=== PATIENT | male | born 1960 | race Caucasian/White ===

== ENCOUNTER 2020-05-31 10:39 | Outpatient (REF) | payer OTHER, SELFPAY ==
[2020-05-31 15:32] LABS: Ferritin 3082 ng/mL (20-250)
== END 2020-05-31 10:40 | disposition home or self-care (01) ==
LOC: HO.BBR 10:39
PROVIDERS: Visit Provider Internal Medicine Hematology & Oncology
DX: E83.110 Hereditary hemochromatosis (principal)
CPT/HCPCS: 36415; 82728

== ENCOUNTER 2020-06-15 13:58 | Outpatient (REF) | payer OTHER, SELFPAY ==
[2020-06-15 17:42] LABS: Ferritin 3303 ng/mL (20-250)
== END 2020-06-15 13:59 | disposition home or self-care (01) ==
LOC: HO.BBR 13:58
PROVIDERS: Visit Provider Internal Medicine Hematology & Oncology
DX: E83.110 Hereditary hemochromatosis (principal)
CPT/HCPCS: 36415; 82728

== ENCOUNTER 2020-06-29 14:05 | Outpatient (REF) | payer OTHER, SELFPAY ==
[2020-06-29 19:02] LABS: Ferritin 2210 ng/mL (20-250)
== END 2020-06-29 14:06 | disposition home or self-care (01) ==
LOC: HO.BBR 14:05
PROVIDERS: Visit Provider Internal Medicine Hematology & Oncology
DX: E83.110 Hereditary hemochromatosis (principal)
CPT/HCPCS: 36415; 82728

== ENCOUNTER 2020-07-13 14:04 | Outpatient (REF) | payer OTHER, SELFPAY ==
[2020-07-13 20:42] LABS: Ferritin 2256 ng/mL (20-250)
== END 2020-07-13 14:05 | disposition home or self-care (01) ==
LOC: HO.BBR 14:04
PROVIDERS: Visit Provider Internal Medicine Hematology & Oncology
DX: E83.110 Hereditary hemochromatosis (principal)
CPT/HCPCS: 36415; 82728

== ENCOUNTER 2020-07-27 13:43 | Outpatient (REF) | payer OTHER, SELFPAY ==
[2020-07-27 16:30] LABS: Ferritin 2347 ng/mL (20-250)
== END 2020-07-27 13:44 | disposition home or self-care (01) ==
LOC: HO.BBR 13:43
PROVIDERS: Visit Provider Internal Medicine Hematology & Oncology
DX: E83.110 Hereditary hemochromatosis (principal)
CPT/HCPCS: 36415; 82728

== ENCOUNTER 2020-08-13 13:16 | Outpatient (REF) | payer OTHER, SELFPAY ==
[2020-08-13 16:11] LABS: Ferritin 1833 ng/mL (20-250)
== END 2020-08-13 13:17 | disposition home or self-care (01) ==
LOC: HO.BBR 13:16
PROVIDERS: Visit Provider Internal Medicine Hematology & Oncology
DX: E83.110 Hereditary hemochromatosis (principal)
CPT/HCPCS: 36415; 82728

== ENCOUNTER 2020-08-31 13:40 | Outpatient (REF) | payer OTHER, SELFPAY ==
[2020-08-31 17:06] LABS: Ferritin 2413 ng/mL (20-250)
== END 2020-08-31 13:41 | disposition home or self-care (01) ==
LOC: HO.BBR 13:40
PROVIDERS: Visit Provider Internal Medicine Hematology & Oncology
DX: E83.110 Hereditary hemochromatosis (principal)
CPT/HCPCS: 36415; 82728

== ENCOUNTER 2020-09-14 13:45 | Outpatient (REF) | payer OTHER, SELFPAY ==
[2020-09-14 16:10] LABS: Ferritin 1444 ng/mL (20-250)
== END 2020-09-14 13:46 | disposition home or self-care (01) ==
LOC: HO.BBR 13:45
PROVIDERS: Visit Provider Internal Medicine Hematology & Oncology
DX: E83.110 Hereditary hemochromatosis (principal)
CPT/HCPCS: 36415; 82728

== ENCOUNTER 2020-09-28 09:54 | Outpatient (REF) | payer OTHER, SELFPAY ==
[2020-09-28 12:07] LABS: Ferritin 1005 ng/mL (20-250)
== END 2020-09-28 09:55 | disposition home or self-care (01) ==
LOC: HO.BBR 09:54
PROVIDERS: Visit Provider Internal Medicine Hematology & Oncology
DX: E83.110 Hereditary hemochromatosis (principal)
CPT/HCPCS: 36415; 82728

== ENCOUNTER 2020-10-12 10:05 | Outpatient (REF) | payer OTHER, SELFPAY ==
[2020-10-12 12:17] LABS: Ferritin 1412 ng/mL (20-250)
== END 2020-10-12 10:06 | disposition home or self-care (01) ==
LOC: HO.BBR 10:05
PROVIDERS: Visit Provider Internal Medicine Hematology & Oncology
DX: E83.110 Hereditary hemochromatosis (principal)
CPT/HCPCS: 36415; 82728

== ENCOUNTER 2020-10-26 13:54 | Outpatient (REF) | payer OTHER, SELFPAY ==
[2020-10-26 16:00] LABS: Ferritin 1188 ng/mL (20-250)
== END 2020-10-26 13:55 | disposition home or self-care (01) ==
LOC: HO.BBR 13:54
PROVIDERS: Visit Provider Internal Medicine Hematology & Oncology
DX: E83.110 Hereditary hemochromatosis (principal)
CPT/HCPCS: 36415; 82728

== ENCOUNTER 2020-11-09 13:43 | Outpatient (REF) | payer OTHER, SELFPAY ==
[2020-11-09 15:58] LABS: Ferritin 1140 ng/mL (20-250)
== END 2020-11-09 13:44 | disposition home or self-care (01) ==
LOC: HO.BBR 13:43
PROVIDERS: Visit Provider Internal Medicine Hematology & Oncology
DX: E83.110 Hereditary hemochromatosis (principal)
CPT/HCPCS: 36415; 82728

== ENCOUNTER 2020-11-23 13:00 | Outpatient (REF) | payer OTHER, SELFPAY ==
[2020-11-23 15:33] LABS: Ferritin 1028 ng/mL (20-250)
== END 2020-11-23 13:01 | disposition home or self-care (01) ==
LOC: HO.BBR 13:00
PROVIDERS: PCP Internal Medicine; Visit Provider Internal Medicine Hematology & Oncology
DX: E83.110 Hereditary hemochromatosis (principal)
CPT/HCPCS: 36415; 82728

== ENCOUNTER 2020-12-07 13:43 | Outpatient (REF) | payer OTHER, SELFPAY ==
[2020-12-07 15:56] LABS: Ferritin 955 ng/mL (20-250)
== END 2020-12-07 13:44 | disposition home or self-care (01) ==
LOC: HO.BBR 13:43
PROVIDERS: Visit Provider Internal Medicine Hematology & Oncology
DX: E83.110 Hereditary hemochromatosis (principal)
CPT/HCPCS: 36415; 82728

== ENCOUNTER 2020-12-21 12:25 | Outpatient (REF) | payer OTHER, SELFPAY ==
[2020-12-21 14:40] LABS: Ferritin 954 ng/mL (20-250)
== END 2020-12-21 12:26 | disposition home or self-care (01) ==
LOC: HO.BBR 12:25
PROVIDERS: Visit Provider Internal Medicine Hematology & Oncology
DX: E83.110 Hereditary hemochromatosis (principal)
CPT/HCPCS: 36415; 82728

== ENCOUNTER 2021-01-03 14:48 | Outpatient (REF) | payer OTHER, SELFPAY ==
[2021-01-03 16:40] LABS: Ferritin 1465 ng/mL (20-250)
== END 2021-01-03 14:49 | disposition home or self-care (01) ==
LOC: HO.BBR 14:48
PROVIDERS: PCP Internal Medicine; Visit Provider Internal Medicine Hematology & Oncology
DX: E83.110 Hereditary hemochromatosis (principal)
CPT/HCPCS: 36415; 82728

== ENCOUNTER 2021-01-18 13:35 | Outpatient (REF) | payer OTHER, SELFPAY ==
[2021-01-18 15:45] LABS: Ferritin 2127 ng/mL (20-250)
== END 2021-01-18 13:36 | disposition home or self-care (01) ==
LOC: HO.BBR 13:35
PROVIDERS: PCP Internal Medicine; Visit Provider Internal Medicine Hematology & Oncology
DX: E83.110 Hereditary hemochromatosis (principal)
CPT/HCPCS: 36415; 82728

== ENCOUNTER 2021-02-01 13:30 | Outpatient (REF) | payer OTHER, SELFPAY | END 2021-02-01 13:31 | disposition home or self-care (01) | LOC: HO.BBR 13:30 | PROVIDERS: Visit Provider Internal Medicine Hematology & Oncology | DX: Z13.89 Encounter for screening for other disorder (principal) ==

== ENCOUNTER 2021-02-15 13:50 | Outpatient (REF) | payer OTHER, SELFPAY ==
[2021-02-15 15:14] LABS: Ferritin 1331 ng/mL (20-250)
== END 2021-02-15 13:51 | disposition home or self-care (01) ==
LOC: HO.BBR 13:50
PROVIDERS: Visit Provider Internal Medicine Hematology & Oncology
DX: E83.110 Hereditary hemochromatosis (principal)
CPT/HCPCS: 36415; 82728

== ENCOUNTER 2021-03-01 11:51 | Outpatient (REF) | payer OTHER, SELFPAY ==
[2021-03-01 15:14] LABS: Ferritin 1075 ng/mL (20-250)
== END 2021-03-01 11:52 | disposition home or self-care (01) ==
LOC: HO.BBR 11:51
PROVIDERS: Visit Provider Internal Medicine Hematology & Oncology
DX: E83.110 Hereditary hemochromatosis (principal)
CPT/HCPCS: 36415; 82728

== ENCOUNTER 2021-03-21 12:11 | Outpatient (REF) | payer OTHER, SELFPAY ==
[2021-03-21 14:39] LABS: Ferritin 1075 ng/mL (20-250)
== END 2021-03-21 12:12 | disposition home or self-care (01) ==
LOC: HO.BBR 12:11
PROVIDERS: Visit Provider Internal Medicine Hematology & Oncology
DX: E83.110 Hereditary hemochromatosis (principal)
CPT/HCPCS: 36415; 82728

== ENCOUNTER 2021-04-04 12:16 | Outpatient (REF) | payer OTHER, SELFPAY ==
[2021-04-04 15:25] LABS: Ferritin 1128 ng/mL (20-250)
== END 2021-04-04 12:17 | disposition home or self-care (01) ==
LOC: HO.BBR 12:16
PROVIDERS: Visit Provider Internal Medicine Hematology & Oncology
DX: E83.110 Hereditary hemochromatosis (principal)
CPT/HCPCS: 36415; 82728

== ENCOUNTER 2021-04-18 15:44 | Outpatient (REF) | payer OTHER, SELFPAY ==
[2021-04-18 17:19] LABS: Ferritin 823 ng/mL (20-250)
== END 2021-04-18 15:45 | disposition home or self-care (01) ==
LOC: HO.BBR 15:44
PROVIDERS: Visit Provider Internal Medicine Hematology & Oncology
DX: E83.110 Hereditary hemochromatosis (principal)
CPT/HCPCS: 36415; 82728

== ENCOUNTER 2021-05-02 15:19 | Outpatient (REF) | payer OTHER, SELFPAY ==
[2021-05-02 17:02] LABS: Ferritin 798 ng/mL (20-250)
== END 2021-05-02 15:20 | disposition home or self-care (01) ==
LOC: HO.BBR 15:19
PROVIDERS: Visit Provider Internal Medicine Hematology & Oncology
DX: E83.110 Hereditary hemochromatosis (principal)
CPT/HCPCS: 36415; 82728

== ENCOUNTER 2021-05-16 14:16 | Outpatient (REF) | payer OTHER, SELFPAY ==
[2021-05-16 15:54] LABS: Ferritin 579 ng/mL (20-250)
== END 2021-05-16 14:17 | disposition home or self-care (01) ==
LOC: HO.BBR 14:16
PROVIDERS: Visit Provider Internal Medicine Hematology & Oncology
DX: E83.110 Hereditary hemochromatosis (principal)
CPT/HCPCS: 36415; 82728

== ENCOUNTER 2021-06-13 15:34 | Outpatient (REF) | payer OTHER, SELFPAY ==
[2021-06-13 17:16] LABS: Ferritin 704 ng/mL (20-250)
== END 2021-06-13 15:35 | disposition home or self-care (01) ==
LOC: HO.BBR 15:34
PROVIDERS: Visit Provider Internal Medicine Hematology & Oncology
DX: E83.119 Hemochromatosis, unspecified (principal)
CPT/HCPCS: 36415; 82728

== ENCOUNTER 2021-07-02 14:59 | Outpatient (REF) | payer OTHER, SELFPAY ==
[2021-07-02 17:29] LABS: Ferritin 651 ng/mL (20-250)
== END 2021-07-02 15:00 | disposition home or self-care (01) ==
LOC: HO.BBR 14:59
PROVIDERS: Visit Provider Internal Medicine Hematology & Oncology
DX: E83.110 Hereditary hemochromatosis (principal)
CPT/HCPCS: 36415; 82728

== ENCOUNTER 2021-07-18 15:20 | Outpatient (REF) | payer OTHER, SELFPAY ==
[2021-07-18 16:54] LABS: Ferritin 647 ng/mL (20-250)
== END 2021-07-18 15:21 | disposition home or self-care (01) ==
LOC: HO.BBR 15:20
PROVIDERS: Visit Provider Internal Medicine Hematology & Oncology
DX: E83.110 Hereditary hemochromatosis (principal)
CPT/HCPCS: 36415; 82728

== ENCOUNTER 2021-08-06 15:11 | Outpatient (REF) | payer OTHER, SELFPAY ==
[2021-08-06 17:20] LABS: Ferritin 445 ng/mL (20-250)
== END 2021-08-06 15:12 | disposition home or self-care (01) ==
LOC: HO.BBR 15:11
PROVIDERS: Visit Provider Internal Medicine Hematology & Oncology
DX: E83.110 Hereditary hemochromatosis (principal)
CPT/HCPCS: 36415; 82728

== ENCOUNTER 2021-08-20 14:22 | Outpatient (REF) | payer OTHER, SELFPAY ==
[2021-08-20 16:11] LABS: Ferritin 501 ng/mL (20-250)
== END 2021-08-20 14:23 | disposition home or self-care (01) ==
LOC: HO.BBR 14:22
PROVIDERS: Visit Provider Internal Medicine Hematology & Oncology
DX: E83.110 Hereditary hemochromatosis (principal)
CPT/HCPCS: 36415; 82728

== ENCOUNTER 2021-09-05 15:30 | Outpatient (REF) | payer OTHER, SELFPAY ==
[2021-09-05 16:50] LABS: Ferritin 534 ng/mL (20-250)
== END 2021-09-05 15:31 | disposition home or self-care (01) ==
LOC: HO.BBR 15:30
PROVIDERS: Visit Provider Internal Medicine Hematology & Oncology
DX: E83.110 Hereditary hemochromatosis (principal)
CPT/HCPCS: 36415; 82728

== ENCOUNTER 2021-09-23 13:15 | Outpatient (REF) | payer OTHER, SELFPAY ==
[2021-09-23 16:05] LABS: Ferritin 601 ng/mL (20-250)
== END 2021-09-23 13:16 | disposition home or self-care (01) ==
LOC: HO.BBR 13:15
PROVIDERS: Visit Provider Internal Medicine Hematology & Oncology
DX: E83.110 Hereditary hemochromatosis (principal)
CPT/HCPCS: 36415; 82728

== ENCOUNTER 2021-10-07 11:04 | Outpatient (REF) | payer OTHER, SELFPAY ==
[2021-10-07 12:47] LABS: Ferritin 554 ng/mL (20-250)
== END 2021-10-07 11:05 | disposition home or self-care (01) ==
LOC: HO.BBR 11:04
PROVIDERS: Visit Provider Internal Medicine Hematology & Oncology
DX: E83.110 Hereditary hemochromatosis (principal)
CPT/HCPCS: 36415; 82728

== ENCOUNTER 2021-10-21 10:51 | Outpatient (REF) | payer OTHER, SELFPAY ==
[2021-10-21 12:48] LABS: Ferritin 420 ng/mL (20-250)
== END 2021-10-21 10:52 | disposition home or self-care (01) ==
LOC: HO.BBR 10:51
PROVIDERS: Visit Provider Internal Medicine Hematology & Oncology
DX: E83.110 Hereditary hemochromatosis (principal)
CPT/HCPCS: 36415; 82728

== ENCOUNTER 2021-11-04 10:56 | Outpatient (REF) | payer OTHER, SELFPAY | END 2021-11-04 10:57 | disposition home or self-care (01) | LOC: HO.BBR 10:56 | PROVIDERS: Visit Provider Internal Medicine Hematology & Oncology | DX: Z13.89 Encounter for screening for other disorder (principal) ==

== ENCOUNTER 2021-11-18 10:51 | Outpatient (REF) | payer OTHER, SELFPAY | END 2021-11-18 10:52 | disposition home or self-care (01) | LOC: HO.BBR 10:51 | PROVIDERS: Visit Provider Internal Medicine Hematology & Oncology | DX: Z13.89 Encounter for screening for other disorder (principal) ==

== ENCOUNTER 2021-12-10 15:30 | Outpatient (REF) | payer OTHER, SELFPAY | END 2021-12-10 15:31 | disposition home or self-care (01) | LOC: HO.BBR 15:30 | PROVIDERS: Visit Provider Internal Medicine Hematology & Oncology | DX: Z13.89 Encounter for screening for other disorder (principal) ==

== ENCOUNTER 2021-12-24 15:41 | Outpatient (REF) | payer OTHER, SELFPAY | END 2021-12-24 15:42 | disposition home or self-care (01) | LOC: HO.BBR 15:41 | PROVIDERS: Visit Provider Internal Medicine Hematology & Oncology | DX: Z13.89 Encounter for screening for other disorder (principal) ==

== ENCOUNTER 2022-01-14 15:09 | Outpatient (REF) | payer OTHER, SELFPAY | END 2022-01-14 15:10 | disposition home or self-care (01) | LOC: HO.BBR 15:09 | PROVIDERS: Visit Provider Internal Medicine Hematology & Oncology | DX: Z13.89 Encounter for screening for other disorder (principal) ==

== ENCOUNTER 2022-01-29 15:40 | Outpatient (REF) | payer OTHER, SELFPAY ==
[2022-01-29 17:13] LABS: Ferritin 316 ng/mL (20-250)
== END 2022-01-29 15:41 | disposition home or self-care (01) ==
LOC: HO.BBR 15:40
PROVIDERS: Visit Provider Internal Medicine Hematology & Oncology
DX: E83.110 Hereditary hemochromatosis (principal)
CPT/HCPCS: 36415; 82728

== ENCOUNTER 2022-02-12 15:29 | Outpatient (REF) | payer OTHER, SELFPAY ==
[2022-02-12 16:57] LABS: Ferritin 309 ng/mL (20-250)
== END 2022-02-12 15:30 | disposition home or self-care (01) ==
LOC: HO.BBR 15:29
PROVIDERS: Visit Provider Internal Medicine Hematology & Oncology
DX: E83.110 Hereditary hemochromatosis (principal)
CPT/HCPCS: 36415; 82728

== ENCOUNTER 2022-02-26 15:40 | Outpatient (REF) | payer OTHER, SELFPAY ==
[2022-02-26 18:01] LABS: Ferritin 257 ng/mL (20-250)
== END 2022-02-26 15:41 | disposition home or self-care (01) ==
LOC: HO.BBR 15:40
PROVIDERS: Visit Provider Internal Medicine Hematology & Oncology
DX: E83.110 Hereditary hemochromatosis (principal)
CPT/HCPCS: 36415; 82728

== ENCOUNTER 2022-03-12 15:42 | Outpatient (REF) | payer OTHER, SELFPAY ==
[2022-03-12 17:50] LABS: Ferritin 230 ng/mL (20-250)
== END 2022-03-12 15:43 | disposition home or self-care (01) ==
LOC: HO.BBR 15:42
PROVIDERS: Visit Provider Internal Medicine Hematology & Oncology
DX: E83.110 Hereditary hemochromatosis (principal)
CPT/HCPCS: 36415; 82728

== ENCOUNTER 2022-03-31 13:26 | Outpatient (REF) | payer OTHER, SELFPAY ==
[2022-03-31 15:23] LABS: Ferritin 204 ng/mL (20-250)
== END 2022-03-31 13:27 | disposition home or self-care (01) ==
LOC: HO.BBR 13:26
PROVIDERS: Visit Provider Internal Medicine Hematology & Oncology
DX: E83.110 Hereditary hemochromatosis (principal)
CPT/HCPCS: 36415; 82728

== ENCOUNTER 2022-04-15 13:29 | Outpatient (REF) | payer OTHER, SELFPAY ==
[2022-04-15 16:51] LABS: Ferritin 166 ng/mL (20-250)
== END 2022-04-15 13:30 | disposition home or self-care (01) ==
LOC: HO.BBR 13:29
PROVIDERS: PCP Internal Medicine; Visit Provider Internal Medicine Hematology & Oncology
DX: E83.110 Hereditary hemochromatosis (principal)
CPT/HCPCS: 36415; 82728

== ENCOUNTER 2022-04-30 08:55 | Outpatient (REF) | payer OTHER, SELFPAY ==
[2022-04-30 11:51] LABS: Ferritin 143 ng/mL (20-250)
== END 2022-04-30 08:56 | disposition home or self-care (01) ==
LOC: HO.BBR 08:55
PROVIDERS: Visit Provider Internal Medicine Hematology & Oncology
DX: E83.110 Hereditary hemochromatosis (principal)
CPT/HCPCS: 36415; 82728

== ENCOUNTER 2022-05-15 15:26 | Outpatient (REF) | payer OTHER, SELFPAY ==
[2022-05-15 16:50] LABS: Ferritin 131 ng/mL (20-250)
== END 2022-05-15 15:27 | disposition home or self-care (01) ==
LOC: HO.BBR 15:26
PROVIDERS: Visit Provider Internal Medicine Hematology & Oncology
DX: E83.110 Hereditary hemochromatosis (principal)
CPT/HCPCS: 36415; 82728

== ENCOUNTER 2022-06-03 11:58 | Outpatient (REF) | payer OTHER, SELFPAY ==
[2022-06-03 14:33] LABS: Ferritin 116 ng/mL (20-250)
== END 2022-06-03 11:59 | disposition home or self-care (01) ==
LOC: HO.BBR 11:58
PROVIDERS: Visit Provider Internal Medicine Hematology & Oncology
DX: E83.110 Hereditary hemochromatosis (principal)
CPT/HCPCS: 36415; 82728

== ENCOUNTER 2022-09-18 10:02 | Outpatient (REF) | payer OTHER, SELFPAY | END 2022-09-18 10:03 | disposition home or self-care (01) | LOC: HO.BBR 10:02 | PROVIDERS: Visit Provider Internal Medicine Hematology & Oncology | DX: Z13.89 Encounter for screening for other disorder (principal) ==

== ENCOUNTER 2022-10-09 09:01 | Outpatient (REF) | payer OTHER, SELFPAY ==
[2022-10-09 11:20] LABS: Ferritin 44 ng/mL (20-250)
== END 2022-10-09 09:02 | disposition home or self-care (01) ==
LOC: HO.BBR 09:01
PROVIDERS: Visit Provider Internal Medicine Hematology & Oncology
DX: E83.110 Hereditary hemochromatosis (principal)
CPT/HCPCS: 36415; 82728

== ENCOUNTER 2022-10-23 08:59 | Outpatient (REF) | payer OTHER, SELFPAY ==
[2022-10-23 12:32] LABS: Ferritin 58 ng/mL (20-250)
== END 2022-10-23 09:00 | disposition home or self-care (01) ==
LOC: HO.BBR 08:59
PROVIDERS: PCP Internal Medicine; Visit Provider Internal Medicine Hematology & Oncology
DX: E83.110 Hereditary hemochromatosis (principal)
CPT/HCPCS: 36415; 82728

== ENCOUNTER 2022-11-06 08:58 | Outpatient (REF) | payer OTHER, SELFPAY ==
[2022-11-06 11:42] LABS: Ferritin 36 ng/mL (20-250)
== END 2022-11-06 08:59 | disposition home or self-care (01) ==
LOC: HO.BBR 08:58
PROVIDERS: PCP Internal Medicine; Visit Provider Internal Medicine Hematology & Oncology
DX: E83.110 Hereditary hemochromatosis (principal)
CPT/HCPCS: 36415; 82728

== ENCOUNTER 2022-12-02 09:25 | Outpatient (AMB) | payer OTHER, SELFPAY ==
[2022-12-02 09:30] VITALS: BP 110/86; PULSE 64; O2SAT 100; BMI 27.7
--- NOTE | 2022-12-02 09:30 | MHC.OFFVIS ---
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 Allergies No Known Allergies Allergy (Verified 12/02/22 09:34) HPI HPI Comments History of Present Illness Details 62y/o right handed male comes for evaluation of tremors. He started noticing tremors in his right hand about 2 years ago. It was mild and intermittent initially. now it is more persistent. It is mostly a rest tremors. He has occasional right LE tremors as well.He has mild difficulty with right hand coordination. His speech is mildly softer. He has nighttime drooling. His handwriting is smaller and it is hard to write. No trouble with utensils. He has trouble putting his socks on but thinks its due to back and hip surgery.He has some trouble turning in bed. No trouble with showers. He has gait issues - both cardiac and hip, back pain. His balance is not good . No recent falls. He uses the railing when he is using stairs. He denies memory issues or word finding difficulty . He denies any abnormal behavior in sleep but has trouble getting comfortable in sleep.No mood issues He does not exercise because of dyspnea. He denies nausea, vomiting. He denies constipation. He has vertigo sometimes.no hallucinations.No exposure to chemicals, no head injury . No family h/o parkinsons. He has 2-3 alcoholic drinks a day ( titos seltzer water and cranberry) [facility] Medical History Abnormal serum iron level Atrial fibrillation CAD (coronary artery disease) Disc degeneration, lumbar HTN (hypertension) Hyperlipidemia Hypersomnia Loud snoring Nocturia Surgical History History of back surgery History of hip replacement Hx of heart artery stent Family History Father Heart disease Mother Cancer Social History Alcohol intake: current Alcohol intake frequency: a few times a month Patient Tobacco Use Status: Never used Tobacco Review of Systems Const Reports daytime sleepiness, Reports difficulty sleeping and Reports snoring Card Reports irregular heart rhythm and Reports dyspnea Resp Reports dyspnea and Reports snoring GI Reports constipation Musc Reports back pain Neuro Reports tremor(s) Physical Exam Vital Signs: Last Vital Signs Pulse 64 12/02/22 09:30 BP 110/86 12/02/22 09:30 Pulse Ox 100 12/02/22 09:30 Oxygen Delivery Method Room Air 12/02/22 09:30 BMI result Body Mass Index 27.7 Const General: cooperative, comfortable and no acute distress Nutritional Appearance: average body habitus Orientation/consciousness: patient oriented x3 HEENT Head: Yes normal to inspection Neck Other: antecollis, tilted to right restricted range of motion Neuro Other: Mild decreased blink and facial expression slow tongue movements Voice- hypophonia Right UE moderate amplitude rest tremors Fine Finger movements - mildly decreased cynthia R>L Alternating hand movements - decreased cynthia Hand movements - decreased cynthia Foot taps- decreased cynthia 3+ cog wheel rigidity right UE gait - stooped, mild slowness No arm swing on right, decreased on the left UE General: patient oriented x3 and moves all extremities Cranial nerves: Yes CN's II-XII intact bilaterally, Yes Bilaterally intact EOM present, Yes Normal facial strength present and Yes Midline tongue present Cognition (Neuro): normal cognition Motor exam (neuro): 5/5 motor strength present throughout Deep tendon reflexes (DTR's): Right triceps reflex intensity grade: 1+, Left triceps reflex intensity grade: 1+, Rt Biceps (C5, C6): 1+, Left biceps reflex intensity grade: 1+, Right brachioradialis reflex intensity grade: 1+, Left brachioradialis reflex intensity grade: 1+, Right patellar reflex intensity grade: 1+ and Left patellar reflex intensity grade: 1+ Coordination: [id number] test normal Assessment & Plan Assessment & Plan (1) Parkinson's disease: Comment: tremors, bradykinesia, cog wheel rigidty Code(s): G20 - Parkinson's disease (2) Loud snoring: Code(s): R06.83 - Snoring (3) Hypersomnia: Code(s): G47.10 - Hypersomnia, unspecified Plan I will evaluate him with MRI brain and sleep study to r/o sleep apnea Symptoms and diagnosis, management options for parkinsons was discussed in detail and printed patient info was given I will trial him on sinemet 25/100 bid- side effects discussed will discuss about dermatology eval during his next visit F/u cardiology for dyspnea. PT after cardiac evaluation Orders: Orders MR head/brain wo con Today G20 - Parkinson's disease, G25.2 - Other specified forms of tremor RT PSG in-lab sleep study Today G47.10 - Hypersomnia, unspecified, I48.91 - Unspecified atrial fibrillation, R06.83 - Snoring, R35.1 - Nocturia Medications: New carbidopa-levodopa 25-100 mg (Sinemet) 1 tab PO BID 60 tabs 1RF Coding Level of Care Code New Pt Level 5 (62033) Diagnoses Parkinson's disease G20 Loud snoring R06.83 Hypersomnia G47.10 Time Spent (min) 70 Comment 45 min with patient 15 min reviewing records 10 min educating patient on diagnosis
== END 2022-12-02 10:17 | disposition home or self-care (01) ==
PROVIDERS: Visit Provider Psychiatry & Neurology Neurology
DX: G20 Parkinson's disease (principal); R06.83 Snoring; G47.10 Hypersomnia, unspecified
CPT/HCPCS: 99205

== ENCOUNTER → 2022-12-02 09:25 | Outpatient (BNVA) | payer OTHER, SELFPAY | PROVIDERS: Visit Provider Psychiatry & Neurology Neurology ==

== ENCOUNTER 2022-12-09 11:11 | Outpatient (REF) | payer OTHER, SELFPAY | END 2022-12-09 11:12 | disposition home or self-care (01) | LOC: HO.BBR 11:11 | PROVIDERS: PCP Internal Medicine; Visit Provider Internal Medicine Hematology & Oncology | DX: Z13.89 Encounter for screening for other disorder (principal) ==

== ENCOUNTER → 2022-12-17 19:30 | Outpatient (REF) | payer OTHER, SELFPAY | LOC: HO.SL 19:30 | PROVIDERS: PCP Internal Medicine; Visit Provider Psychiatry & Neurology Neurology | DX: G47.33 Obstructive sleep apnea (adult) (pediatric) (principal); G47.10 Hypersomnia, unspecified; R06.83 Snoring; R35.1 Nocturia | CPT/HCPCS: 95810 ==

== ENCOUNTER → 2022-12-17 21:28 | Outpatient (BNV) | payer OTHER, SELFPAY ==
--- NOTE | 2023-01-05 14:49 | ...WebTmpl.AM.PHNO ---
Nursing Note Received a call from radiology for an MRI report Patient had MRI brain on 01/02/23 - showed a small acute ischemia in right internal capsule. I called patient - he denies any new focal weakness, numbness, speech difficulty etc. He is on Xarelto for atrial fibrillation I will repeat his MRI , carotid doppler and he has f/u with cardiology next week.
== END ==
PROVIDERS: PCP Internal Medicine; Visit Provider Psychiatry & Neurology Neurology
DX: G47.33 Obstructive sleep apnea (adult) (pediatric) (principal)
CPT/HCPCS: 95810

== ENCOUNTER 2023-01-02 18:35 | Outpatient (REF) | payer OTHER, SELFPAY ==
--- NOTE | ~2023-01-02 | MR_ITS ---
EXAMINATION: MR BRAIN WITHOUT CONTRAST CLINICAL INFORMATION: 62-year-old with tremor. COMPARISON: None available. TECHNIQUE: Multiplanar multisequence MR imaging of the brain was done without IV contrast. FINDINGS: BRAIN VOLUME: Mild generalized diffuse supratentorial brain parenchymal volume loss is noted with mild vermian volume loss, with nonspecific prominence of the parieto-occipital fissures bilaterally. STRUCTURAL: No malformations. BRAIN AND MENINGES: There is suspicion for possible mild restricted diffusion involving the posterior limb of the right internal capsule raising the possibility for acute ischemia. Otherwise no other foci of restricted diffusion are seen to suggest acute or subacute cerebral ischemia. A few punctate FLAIR/T2 signal hyperintensities are seen in the prelenticular portions of the internal capsules bilaterally, which are nonspecific but could reflect minimal foci of chronic ischemic microangiopathy. The remainder of the brain parenchyma is normal in signal intensity. Gradient refocused imaging demonstrates no abnormal susceptibility-weighted signal loss to suggest hemorrhage, hemosiderin staining or abnormal mineralization. No extra-axial fluid collections, space-occupying process or mass effect are identified. VENTRICLES AND SUBARACHNOID SPACES: The ventricular system and subarachnoid spaces are consistent with a mild degree of generalized volume loss without hydrocephalus. ORBITAL STRUCTURES: The visualized orbital structures are grossly unremarkable within the limitations of the study. VASCULAR: Signal voids are noted in the visualized major intracranial vessels. OSSEOUS STRUCTURES, SINUSES/MASTOIDS, EXTRACRANIAL SOFT TISSUES: There is nasal septal deviation to the left with minor mucosal thickening in the ethmoid complex and left maxillary sinus. The visualized extracranial soft tissue structures are unremarkable. Osseous marrow signal intensity is within normal limits. Degenerative changes noted at the atlantodental joint. MR/MR head/brain wo con IMPRESSION: 1. Possible small focus of acute ischemia involving the posterior limb of the right internal capsule. Consider followup MRI of the brain at a clinically appropriate interval to reassess. 2. Minimal punctate T2 hyperintensities in the deep frontal lobe white matter as detailed above which are nonspecific findings. 3. No evidence for hemorrhage, extra-axial fluid collection, space-occupying process, mass effect or hydrocephalus. 4. Nasal septal deviation and mild paranasal sinus inflammatory changes. The [facility] staff will call to confirm receipt of this report with acknowledgement of the findings and any recommendations.
== END 2023-01-02 18:36 | disposition home or self-care (01) ==
LOC: HO.MRI 18:35
PROVIDERS: PCP Internal Medicine; Visit Provider Psychiatry & Neurology Neurology
DX: G25.2 Other specified forms of tremor (principal); G20 Parkinson's disease
CPT/HCPCS: 70551

== ENCOUNTER 2023-01-06 10:21 | Outpatient (REF) | payer OTHER, SELFPAY | END 2023-01-06 10:22 | disposition home or self-care (01) | LOC: HO.BBR 10:21 | PROVIDERS: PCP Internal Medicine; Visit Provider Internal Medicine Hematology & Oncology | DX: Z13.89 Encounter for screening for other disorder (principal) ==

== ENCOUNTER 2023-01-15 10:15 | Outpatient (REF) | payer OTHER, SELFPAY | END 2023-01-15 10:16 | disposition home or self-care (01) | LOC: HO.BBR 10:15 | PROVIDERS: PCP Internal Medicine; Visit Provider Internal Medicine Hematology & Oncology | DX: Z13.89 Encounter for screening for other disorder (principal) ==

== ENCOUNTER 2023-01-21 13:38 | Outpatient (REF) | payer OTHER, SELFPAY ==
--- NOTE | ~2023-01-21 | US_ITS ---
EXAMINATION: US EXTRACRANIAL CAROTID DUPLEX, BILATERAL CLINICAL INFORMATION: Cerebral infarction. COMPARISON: None available. TECHNIQUE: Real-time ultrasound and Doppler techniques (integrating B-mode 2-D vascular images, Doppler spectral analysis and color-flow Doppler imaging) were utilized to interrogate the extracranial carotid arteries, the vertebral arteries and proximal subclavian arteries bilaterally. The degree of stenosis is determined by criteria similar to NASCET. FINDINGS: Right Side: 1. There is no atherosclerotic plaque seen in the bifurcation/proximal ICA region. 2. The common carotid artery PSV proximally is 80.5 cm/s and distally 76.8 cm/s. 3. The proximal internal carotid artery velocities are 74.6 cm/s systolic and 16.9 cm/s diastolic. 4. The proximal external carotid artery PSV is 85.6 cm/s. 5. The vertebral artery shows antegrade flow. 6. The subclavian artery waveforms are normal. Left Side: 1. There is minimal soft atherosclerotic plaque seen in the bulb/proximal ICA region. 2. The common carotid artery PSV proximally is 122 cm/s and distally 76.6 cm/s. 3. The proximal internal carotid artery velocities are 66.0 cm/s systolic and 20.04 cm/s diastolic. 4. The proximal external carotid artery PSV is 69.9 cm/s. 5. The vertebral artery shows antegrade flow. 6. The subclavian artery waveforms are normal. US/US carotid duplex BI IMPRESSION: 1. RIGHT: No hemodynamically significant stenosis in right carotid artery 2. LEFT: No hemodynamically significant stenosis in left carotid artery 3. There is no change in the category severity of disease when compared to the previous study dated.
== END 2023-01-21 13:39 | disposition home or self-care (01) ==
LOC: HO.US 13:38
PROVIDERS: PCP Internal Medicine; Visit Provider Psychiatry & Neurology Neurology
DX: Z86.73 Personal history of transient ischemic attack (TIA), and cerebral infarction without residual deficits (principal)
CPT/HCPCS: 93880

== ENCOUNTER 2023-01-28 14:07 | Outpatient (AMB) | payer OTHER, SELFPAY ==
--- NOTE | 2023-01-28 14:10 | A.OFFVIS_ITS ---
Intake Vital Signs 01/28/23 14:12 Height 6 ft 3 in Weight 227 lb 2 oz BMI 28.4 BP 118/76 Blood Pressure Location Rt brachial Position Sitting Respiration 15 Pulse 67 Pulse Source Pulse Oximeter Pulse Oximetry (%) 99 Oxygen Delivery Method Room Air Intake Visit Reasons: 8wk follow up Tremor upper extremity/Lvm Intake Note: Pt presents for 8 week follow up for tremors, to discuss MRI(01/02/23) and polysomnogram( 12/17/22) results. Pt reports he feels worse that before. He has no energy and has been having some trouble with his balance and gait. Pt requests a refill on his Carbidopa today. Allergies No Known Allergies Allergy (Verified 01/28/23 14:12) Medication List - Last Reconciled 01/28/23 by Yamilet Sierra MD atorvastatin 20 mg PO DAILY carbidopa-levodopa 25-100 mg (Sinemet) 1 tab PO BID furosemide 20 mg PO DAILY lisinopril 5 mg PO DAILY propranolol ER 120 mg PO DAILY rivaroxaban (Xarelto) 20 mg PO DAILY HPI HPI Comments History of Present Illness Details 62y/o right handed male comes for follow up of parkinsons disease. 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 He denies any symptoms.His balance is poor. History-He started noticing tremors in his right hand about 2 years ago. It was mild and intermittent initially. now it is more persistent. It is mostly a rest tremors. He has occasional right LE tremors as well.He has mild difficulty with right hand coordination. His speech is mildly softer. He has nighttime drooling. His handwriting is smaller and it is hard to write. No trouble with utensils. He has trouble putting his socks on but thinks its due to back and hip surgery.He has some trouble turning in bed. No trouble with showers. He has gait issues - both cardiac and hip, back pain. His balance is not good . No recent falls. He uses the railing when he is using stairs. He denies memory issues or word finding difficulty . He denies any abnormal behavior in sleep but has trouble getting comfortable in sleep.No mood issues He does not exercise because of dyspnea. He denies nausea, vomiting. He denies constipation. He has vertigo sometimes.no hallucinations.No exposure to chemicals, no head i njury . No family h/o parkinsons. He has 2-3 alcoholic drinks a day ( titos seltzer water and cranberry) PENDING SALE TO [facility] Medical History (Updated 01/28/23 @ 14:34 by Yamilet Sierra MD) Parkinson's disease without dyskinesia or fluctuating manifestations Obstructive sleep apnea CVA (cerebral vascular accident) Abnormal serum iron level Hyperlipidemia HTN (hypertension) CAD (coronary artery disease) Atrial fibrillation Hypersomnia Nocturia Loud snoring Disc degeneration, lumbar Surgical History Hx of heart artery stent History of hip replacement History of back surgery Family History Father Heart disease Mother Cancer Social History Alcohol intake: current Alcohol intake frequency: a few times a month Patient Tobacco Use Status: Never used Tobacco Physical Exam Vital Signs: Last Vital Signs Pulse 67 01/28/23 14:12 Resp 15 01/28/23 14:12 BP 118/76 01/28/23 14:12 Pulse Ox 99 01/28/23 14:12 Oxygen Delivery Method Room Air 01/28/23 14:12 BMI result Body Mass Index 28.4 Const General: cooperative, comfortable and no acute distress Nutritional Appearance: average body habitus Orientation/consciousness: patient oriented x3 HEENT Head: Yes normal to inspection Neck Other: antecollis, tilted to right restricted range of motion Neuro Other: Mild decreased blink and facial expression slow tongue movements Voice- hypophonia Right UE moderate amplitude rest tremors Fine Finger movements - mildly decreased cynthia R>L Alternating hand movements - decreased cynthia Hand movements - decreased cynthia Foot taps- decreased cynthia 3+ cog wheel rigidity right UE gait - stooped, mild slowness No arm swing on right, decreased on the left UE General: patient oriented x3 and moves all extremities Cranial nerves: Yes CN's II-XII intact bilaterally, Yes Bilaterally intact EOM present, Yes Normal facial strength present and Yes Midline tongue present Cognition (Neuro): normal cognition Motor exam (neuro): 5/5 motor strength present throughout Coordination: [id number] test normal Assessment & Plan Assessment & Plan (1) Parkinson's disease without dyskinesia or fluctuating manifestations: Code(s): G20.A1 - Parkinson's disease without dyskinesia, without mention of fluctuations (2) Obstructive sleep apnea: Comment: Mild AHI 7/hr and o2 ramo 81% Code(s): G47.33 - Obstructive sleep apnea (adult) (pediatric) Plan Symptoms and diagnosis, management options for parkinsons was discussed in detail and printed patient info was given Increase sinemet 25/100 tid- side effects discussed Dermatology referral Orders: Referrals Dermatology Referral G20.A1 - Parkinson's disease without dyskinesia, without mention of fluctuations Medications: Changed From carbidopa-levodopa 25-100 mg (Sinemet) 1 tab PO BID 60 tabs 1RF To carbidopa-levodopa 25-100 mg (Sinemet) 1 tab PO TID 90 tabs 6RF Coding Level of Care Code Est Pt Level 4 (18930) Diagnoses Parkinson's disease without dyskinesia or fluctuating manifestations G20.A1 Obstructive sleep apnea G47.33
[2023-01-28 14:12] VITALS: BP 118/76; PULSE 67; RESP 15; O2SAT 99; BMI 28.4
== END 2023-01-28 14:38 | disposition home or self-care (01) ==
PROVIDERS: PCP Internal Medicine; Visit Provider Psychiatry & Neurology Neurology
DX: G20.A1 Parkinson's disease without dyskinesia, without mention of fluctuations (principal); G47.33 Obstructive sleep apnea (adult) (pediatric)
CPT/HCPCS: 99214

== ENCOUNTER → 2023-01-28 14:07 | Outpatient (BNVA) | payer OTHER, SELFPAY | PROVIDERS: PCP Internal Medicine; Visit Provider Psychiatry & Neurology Neurology | DX: G25.2 Other specified forms of tremor (principal); R06.83 Snoring; R35.1 Nocturia; G47.10 Hypersomnia, unspecified; I48.91 Unspecified atrial fibrillation ==

== ENCOUNTER 2023-02-05 09:53 | Outpatient (REF) | payer OTHER, SELFPAY | END 2023-02-05 09:54 | disposition home or self-care (01) | LOC: HO.BBR 09:53 | PROVIDERS: PCP Internal Medicine; Visit Provider Internal Medicine Hematology & Oncology | DX: Z13.89 Encounter for screening for other disorder (principal) ==

== ENCOUNTER 2023-02-19 09:59 | Outpatient (REF) | payer MEDICARE, OTHER, SELFPAY | END 2023-02-19 10:00 | disposition home or self-care (01) | LOC: HO.BBR 09:59 | PROVIDERS: PCP Internal Medicine; Visit Provider Internal Medicine Hematology & Oncology | DX: Z13.89 Encounter for screening for other disorder (principal) ==

== ENCOUNTER 2023-03-12 09:57 | Outpatient (REF) | payer MEDICARE, OTHER, SELFPAY ==
[2023-03-12 11:32] LABS: Ferritin 20 ng/mL (20-250)
== END 2023-03-12 09:58 | disposition home or self-care (01) ==
LOC: HO.BBR 09:57
PROVIDERS: PCP Internal Medicine; Visit Provider Internal Medicine Hematology & Oncology
DX: E83.110 Hereditary hemochromatosis (principal)
CPT/HCPCS: 36415; 82728

== ENCOUNTER 2023-04-02 10:01 | Outpatient (REF) | payer MEDICARE, OTHER, SELFPAY ==
[2023-04-02 11:02] LABS: Ferritin 18 ng/mL (20-250)
== END 2023-04-02 10:02 | disposition home or self-care (01) ==
LOC: HO.BBR 10:01
PROVIDERS: PCP Internal Medicine; Visit Provider Internal Medicine Hematology & Oncology
DX: E83.110 Hereditary hemochromatosis (principal)
CPT/HCPCS: 36415; 82728

== ENCOUNTER 2023-04-29 10:50 | Outpatient (REF) | payer MEDICARE, OTHER, SELFPAY ==
[2023-04-29 12:27] LABS: Ferritin 12 ng/mL (20-250)
== END 2023-04-29 10:51 | disposition home or self-care (01) ==
LOC: HO.BBR 10:50
PROVIDERS: PCP Internal Medicine; Visit Provider Internal Medicine Hematology & Oncology
DX: E83.110 Hereditary hemochromatosis (principal)
CPT/HCPCS: 36415; 82728

== ENCOUNTER 2023-05-29 10:48 | Outpatient (REF) | payer MEDICARE, OTHER, SELFPAY ==
[2023-05-29 12:10] LABS: Ferritin 35 ng/mL (20-250)
== END 2023-05-29 10:49 | disposition home or self-care (01) ==
LOC: HO.BBR 10:48
PROVIDERS: PCP Internal Medicine; Visit Provider Internal Medicine Hematology & Oncology
DX: E83.110 Hereditary hemochromatosis (principal)
CPT/HCPCS: 36415; 82728

== ENCOUNTER 2023-06-15 14:18 | Outpatient (AMB) | payer MEDICARE, OTHER, SELFPAY ==
--- NOTE | 2023-06-15 14:21 | A.OFFVIS_ITS ---
Intake Vital Signs 06/15/23 14:23 Height 6 ft 3 in Weight 230 lb BMI 28.7 BP 102/62 Blood Pressure Location Rt brachial Position Sitting Respiration 16 Pulse 68 Pulse Source Palpation Intake Visit Reasons: 4 mnts f/u appt Tremors upper Ext.-CONF Intake Note: Pt presents to the office for a 4 moth follow up for tremors. 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 He is on sinemet 25/100 tid - no difference in tremors . but he reports dizziness when he moves quickly . 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 He denies any symptoms.His balance is poor. History-He started noticing tremors in his right hand about 2 years ago. It was mild and intermittent initially. now it is more persistent. It is mostly a rest tremors. He has occasional right LE tremors as well.He has mild difficulty with right hand coordination. His speech is mildly softer. He has nighttime drooling. His handwriting is smaller and it is hard to write. No trouble with utensils. He has trouble putting his socks on but thinks its due to back and hip surgery.He has some trouble turning in bed. No trouble with showers. He has gait issues - both cardiac and hip, back pain. His balance is not good . No recent falls. He uses the railing when he is using stairs. He denies memory issues or word finding difficulty . He denies any abnormal behavior in sleep but has trouble getting comfortable in sleep.No mood issues He does not exercise because of dyspnea. He denies nausea, vomiting. He denies constipation. He has vertigo sometimes.no hallucinations.No exposure to chemicals, no head injury . No family h/o parkinsons. He has 2-3 alcoholic drinks a day ( titos seltzer water and cranberry) [facility] Medical History Parkinson's disease without dyskinesia or fluctuating manifestations Obstructive sleep apnea CVA (cerebral vascular accident) Abnormal serum iron level Hyperlipidemia HTN (hypertension) CAD (coronary artery disease) Atrial fibrillation Hypersomnia Nocturia Loud snoring Disc degeneration, lumbar Surgical History Hx of heart artery stent History of hip replacement History of back surgery Family History Father Heart disease Mother Cancer Social History Alcohol intake: current Alcohol intake frequency: a few times a month Patient Tobacco Use Status: Never used Tobacco Physical Exam Vital Signs: Last Vital Signs Pulse 68 06/15/23 14:23 Resp 16 06/15/23 14:23 BP 102/62 06/15/23 14:23 BMI result Body Mass Index 28.7 Const General: cooperative, comfortable and no acute distress Nutritional Appearance: average body habitus Orientation/consciousness: patient oriented x3 HEENT Head: Yes normal to inspection Neck Other: antecollis, tilted to right restricted range of motion Neuro Other: Mild decreased blink and facial expression slow tongue movements Voice- hypophonia Right UE moderate amplitude rest tremors Fine Finger movements - mildly decreased cynthia R>L Alternating hand movements - decreased cynthia Hand movements - decreased cynthia Foot taps- decreased cynthia 3+ cog wheel rigidity right UE gait - stooped, mild slowness No arm swing on right, decreased on the left UE General: patient oriented x3 and moves all extremities Cranial nerves: Yes CN's II-XII intact bilaterally, Yes Bilaterally intact EOM present, Yes Normal facial strength present and Yes Midline tongue present Cognition (Neuro): normal cognition Motor exam (neuro): 5/5 motor strength present throughout Coordination: [id number] test normal Assessment & Plan Assessment & Plan (1) Parkinson's disease without dyskinesia or fluctuating manifestations: Code(s): G20.A1 - Parkinson's disease without dyskinesia, without mention of fluctuations (2) Obstructive sleep apnea: Comment: Mild AHI 7/hr and o2 ramo 81% Code(s): G47.33 - Obstructive sleep apnea (adult) (pediatric) Plan Symptoms and diagnosis, management options for parkinsons was discussed in detail and printed patient info was given sinemet 25/100 tid- side effects discussed He reports orthostasis - suggested to increase fluids and gave a print out of self care for orthostatic hypotension. Dermatology referral Coding Level of Care Code Est Pt Level 4 (05035) Diagnoses Parkinson's disease without dyskinesia or fluctuating manifestations G20.A1 Obstructive sleep apnea G47.33
[2023-06-15 14:23] VITALS: BP 102/62; PULSE 68; RESP 16; BMI 28.7
== END 2023-06-15 14:57 | disposition home or self-care (01) ==
PROVIDERS: PCP Internal Medicine; Visit Provider Psychiatry & Neurology Neurology
DX: G20.A1 Parkinson's disease without dyskinesia, without mention of fluctuations (principal); G47.33 Obstructive sleep apnea (adult) (pediatric)
CPT/HCPCS: 99214

== ENCOUNTER → 2023-06-15 14:18 | Outpatient (BNVA) | payer MEDICARE, OTHER, SELFPAY | PROVIDERS: PCP Internal Medicine; Visit Provider Psychiatry & Neurology Neurology | DX: G20.A1 Parkinson's disease without dyskinesia, without mention of fluctuations (principal); G47.33 Obstructive sleep apnea (adult) (pediatric) | CPT/HCPCS: 99212 ==

== ENCOUNTER 2023-06-19 10:48 | Outpatient (REF) | payer MEDICARE, SELFPAY ==
[2023-06-19 13:00] LABS: Ferritin 34 ng/mL (20-250)
== END 2023-06-19 10:49 | disposition home or self-care (01) ==
LOC: HO.BBR 10:48
PROVIDERS: PCP Internal Medicine; Visit Provider Internal Medicine Hematology & Oncology
DX: E83.110 Hereditary hemochromatosis (principal)
CPT/HCPCS: 36415; 82728

== ENCOUNTER 2023-07-09 10:58 | Outpatient (REF) | payer MEDICARE, SELFPAY | END 2023-07-09 10:59 | disposition home or self-care (01) | LOC: HO.BBR 10:58 | PROVIDERS: PCP Internal Medicine; Visit Provider Internal Medicine Hematology & Oncology | DX: Z13.89 Encounter for screening for other disorder (principal) ==

== ENCOUNTER 2023-08-10 09:15 | Outpatient (REF) | payer MEDICARE, SELFPAY ==
[2023-08-10 11:32] LABS: Ferritin 29 ng/mL (20-250)
== END 2023-08-10 09:16 | disposition home or self-care (01) ==
LOC: HO.BBR 09:15
PROVIDERS: PCP Internal Medicine; Visit Provider Internal Medicine Hematology & Oncology
DX: E83.110 Hereditary hemochromatosis (principal)
CPT/HCPCS: 36415; 82728

== ENCOUNTER 2023-08-31 11:56 | Outpatient (REF) | payer MEDICARE, OTHER, SELFPAY | END 2023-08-31 11:57 | disposition home or self-care (01) | LOC: HO.BBR 11:56 | PROVIDERS: PCP Internal Medicine; Visit Provider Internal Medicine Hematology & Oncology | DX: Z13.89 Encounter for screening for other disorder (principal) ==

== ENCOUNTER 2023-09-22 11:00 | Outpatient (REF) | payer MEDICARE, OTHER, SELFPAY | END 2023-09-22 11:01 | disposition home or self-care (01) | LOC: HO.BBR 11:00 | PROVIDERS: PCP Internal Medicine; Visit Provider Internal Medicine Hematology & Oncology | DX: Z13.89 Encounter for screening for other disorder (principal) ==

== ENCOUNTER 2023-09-30 13:32 | Outpatient (AMB) | payer MEDICARE, OTHER, SELFPAY ==
--- NOTE | 2023-09-30 13:37 | A.OFFVIS_ITS ---
Vital Signs 09/30/23 13:43 Height 6 ft 3 in Weight 226 lb 2 oz BMI 28.3 BP 118/80 Blood Pressure Location Lt brachial Position Sitting Respiration 16 Pulse 62 Pulse Source Pulse Oximeter Pulse Oximetry (%) 95 Oxygen Delivery Method Room Air Intake Visit Reasons: 3 Month F/U - Confirmed Intake Note: Patient presents for 3 months f/u. Fell x3 over the last 3 months Allergies No Known Allergies Allergy (Verified 09/30/23 13:43) Medication List - Last Reconciled 09/30/23 by Yamilet Sierra MD atorvastatin 20 mg PO DAILY carbidopa-levodopa 25-100 mg (Sinemet) 1 tab PO QID furosemide 20 mg PO DAILY lisinopril 5 mg PO DAILY propranolol ER 120 mg PO DAILY rivaroxaban (Xarelto) 20 mg PO DAILY HPI Comments Details: 63y/o right handed male comes for follow up of parkinsons disease.He feels generalized tiredness and thinks its relate dto his cardiac status . He is on sinemet 25/100 tid - no difference in tremors . but he reports dizziness when he moves quickly . he had 3 falls related to dizziness.He also feels when he is bending over or reaching up. He describes the dizziness a s spinning sensation. He has REM behavioral disorder - sleep talking PSG showed mild MARGI AHI 7/hr O2 81 %- but patient declines CPAP MRI- showed an acute ischemia in the posterior limb of right IC .He is on Xarelto prescribed by support engineer Ca doppler was normal. His balance is poor. History-He started noticing tremors in his right hand about 2 years ago. It was mild and intermittent initially. now it is more persistent. It is mostly a rest tremors. He has occasional right LE tremors as well.He has mild difficulty with right hand coordination. His speech is mildly softer. He has nighttime drooling. His handwriting is smaller and it is hard to write. No trouble with utensils. He has trouble putting his socks on but thinks its due to back and hip surgery.He has some trouble turning in bed. No trouble with showers. He has gait issues - both cardiac and hip, back pain. His balance is not good . No recent falls. He uses the railing when he is using stairs. He denies memory issues or word finding difficulty . He denies any abnormal behavior in sleep but has trouble getting comfortable in sleep.No mood issues He does not exercise because of dyspnea. He denies nausea, vomiting. He denies constipation. He has vertigo sometimes.no hallucinations.No exposure to chemicals, no head injury . No family h/o parkinsons. He has 2-3 alcoholic drinks a day ( titos seltzer water and cranberry) [facility] Medical History Parkinson's disease without dyskinesia or fluctuating manifestations Obstructive sleep apnea CVA (cerebral vascular accident) Abnormal serum iron level Hyperlipidemia HTN (hypertension) CAD (coronary artery disease) Atrial fibrillation Hypersomnia Nocturia Loud snoring Disc degeneration, lumbar Surgical History Hx of heart artery stent History of hip replacement History of back surgery Family History Father Heart disease Mother Cancer Social History Alcohol intake: current Alcohol intake frequency: a few times a month Patient Tobacco Use Status: Never used Tobacco Physical Exam Vital Signs: Last Vital Signs Pulse 62 09/30/23 13:43 Resp 16 09/30/23 13:43 BP 118/80 09/30/23 13:43 Pulse Ox 95 09/30/23 13:43 Oxygen Delivery Method Room Air 09/30/23 13:43 BMI result Body Mass Index 28.3 Const General: cooperative, comfortable and no acute distress Nutritional Appearance: average body habitus Orientation/consciousness: patient oriented x3 HEENT Head: Yes normal to inspection Neck Other: antecollis, tilted to right restricted range of motion Neuro Other: Mild decreased blink and facial expression slow tongue movements Voice- hypophonia Right UE moderate amplitude rest tremors Fine Finger movements - mildly decreased cynthia R>L Alternating hand movements - decreased cynthia Hand movements - decreased cynthia Foot taps- decreased cynthia 3+ cog wheel rigidity right UE gait - stooped, mild slowness No arm swing on right, decreased on the left UE General: patient oriented x3 and moves all extremities Cranial nerves: Yes CN's II-XII intact bilaterally, Yes Bilaterally intact EOM present, Yes Normal facial strength present and Yes Midline tongue present Cognition (Neuro): normal cognition Motor exam (neuro): 5/5 motor strength present throughout Coordination: [id number] test normal Assessment & Plan Assessment & Plan (1) Parkinson's disease without dyskinesia or fluctuating manifestations: Code(s): G20.A1 - Parkinson's disease without dyskinesia, without mention of fluctuations Category: Medical (2) Obstructive sleep apnea: Comment: Mild AHI 7/hr and o2 ramo 81% Code(s): G47.33 - Obstructive sleep apnea (adult) (pediatric) Category: Medical Plan Symptoms and diagnosis, management options for parkinsons was discussed in detail and printed patient info was given sinemet 25/100 qid [id number] -7pm - side effects discussed He reports orthostasis - suggested to increase fluids and gave a print out of self care for orthostatic hypotension. cardiology follow up Medications: Changed From carbidopa-levodopa 25-100 mg (Sinemet) 1 tab PO TID 90 tabs 6RF To carbidopa-levodopa 25-100 mg (Sinemet) 1 tab PO QID 120 tabs 6RF Coding Level of Care Code Est Pt Level 4 (24038) Complex EM visit Add On G2211 Diagnoses Parkinson's disease without dyskinesia or fluctuating manifestations G20.A1 Obstructive sleep apnea G47.33
[2023-09-30 13:43] VITALS: BP 118/80; PULSE 62; RESP 16; O2SAT 95; BMI 28.3
== END 2023-09-30 14:05 | disposition home or self-care (01) ==
PROVIDERS: PCP Internal Medicine; Visit Provider Psychiatry & Neurology Neurology
DX: G20.A1 Parkinson's disease without dyskinesia, without mention of fluctuations (principal); G47.33 Obstructive sleep apnea (adult) (pediatric)
CPT/HCPCS: 99214; G2211

== ENCOUNTER → 2023-09-30 13:32 | Outpatient (BNVA) | payer MEDICARE, OTHER, SELFPAY | PROVIDERS: PCP Internal Medicine; Visit Provider Psychiatry & Neurology Neurology | DX: G20.A1 Parkinson's disease without dyskinesia, without mention of fluctuations (principal); G47.33 Obstructive sleep apnea (adult) (pediatric) | CPT/HCPCS: 99212 ==

== ENCOUNTER 2023-11-03 11:00 | Outpatient (REF) | payer MEDICARE, OTHER, SELFPAY ==
[2023-11-03 12:31] LABS: Ferritin 56 ng/mL (20-250)
== END 2023-11-03 11:01 | disposition home or self-care (01) ==
LOC: HO.BBR 11:00
PROVIDERS: PCP Internal Medicine; Visit Provider Internal Medicine Hematology & Oncology
DX: E83.110 Hereditary hemochromatosis (principal)
CPT/HCPCS: 36415; 82728

== ENCOUNTER 2023-12-24 12:48 | Outpatient (REF) | payer MEDICARE, OTHER, SELFPAY | END 2023-12-24 12:49 | disposition home or self-care (01) | LOC: HO.BBR 12:48 | PROVIDERS: Visit Provider Internal Medicine Hematology & Oncology | DX: Z13.89 Encounter for screening for other disorder (principal) ==

== ENCOUNTER 2024-01-21 11:02 | Outpatient (REF) | payer OTHER, MEDICARE, SELFPAY | END 2024-01-21 11:03 | disposition home or self-care (01) | LOC: HO.BBR 11:02 | PROVIDERS: Visit Provider Internal Medicine Hematology & Oncology | DX: Z13.89 Encounter for screening for other disorder (principal) ==

== ENCOUNTER 2024-01-28 11:50 | Outpatient (REF) | payer MEDICARE, OTHER, SELFPAY | END 2024-01-28 11:51 | disposition home or self-care (01) | LOC: HO.BBR 11:50 | PROVIDERS: PCP Internal Medicine; Visit Provider Internal Medicine Hematology & Oncology | DX: Z13.89 Encounter for screening for other disorder (principal) ==

== ENCOUNTER 2024-02-18 14:32 | Outpatient (AMB) | payer MEDICARE, OTHER, SELFPAY ==
--- NOTE | 2024-02-18 14:37 | MHC.OFFVIS ---
Vital Signs 02/18/24 14:38 Height 6 ft 3 in Weight 227 lb 2 oz BMI 28.4 BP 112/70 Blood Pressure Location Lt brachial Position Sitting Pulse 60 Pulse Source Pulse Oximeter Pulse Oximetry (%) 100 Oxygen Delivery Method Room Air Intake Visit Reasons: Follow up Community Outreach Advocate Required: No Accompanied by: Self / Same As Patient Allergies No Known Allergies Allergy (Verified 02/18/24 14:40) Medication List - Last Reconciled 02/18/24 by Yamilet Sierra MD atorvastatin 20 mg PO DAILY carbidopa-levodopa 25-100 mg (Sinemet) 1 tab PO QID furosemide 20 mg PO DAILY lisinopril 5 mg PO DAILY propranolol ER 80 mg PO DAILY rivaroxaban (Xarelto) 20 mg PO DAILY HPI Comments Details: 63y/o right handed male comes for follow up of parkinsons disease.He still has episodes of dizziness and falls. He is on sinemet 25/100 qid - no difference in tremors .He had 3 falls since his last visit.He also feels when he is bending over or reaching up. He describes the dizziness a s spinning sensation. He has REM behavioral disorder - sleep talking PSG showed mild MARGI AHI 7/hr O2 81 %- but patient declines CPAP MRI- showed an acute ischemia in the posterior limb of right IC .He is on Xarelto prescribed by copy technician Ca doppler was normal. He is scheduled for cardiac cath History-He started noticing tremors in his right hand about 2 years ago. It was mild and intermittent initially. now it is more persistent. It is mostly a rest tremors. He has occasional right LE tremors as well.He has mild difficulty with right hand coordination. His speech is mildly softer. He has nighttime drooling. His handwriting is smaller and it is hard to write. No trouble with utensils. He has trouble putting his socks on but thinks its due to back and hip surgery.He has some trouble turning in bed. No trouble with showers. He has gait issues - both cardiac and hip, back pain. His balance is not good . No recent falls. He uses the railing when he is using stairs. He denies memory issues or word finding difficulty . He denies any abnormal behavior in sleep but has trouble getting comfortable in sleep.No mood issues He does not exercise because of dyspnea. He denies nausea, vomiting. He denies constipation. He has vertigo sometimes.no hallucinations.No exposure to chemicals, no head injury . No family h/o parkinsons. He has 2-3 alcoholic drinks a day ( titos seltzer water and cranberry) [facility] Medical History Parkinson's disease without dyskinesia or fluctuating manifestations Obstructive sleep apnea CVA (cerebral vascular accident) Abnormal serum iron level Hyperlipidemia HTN (hypertension) CAD (coronary artery disease) Atrial fibrillation Hypersomnia Nocturia Loud snoring Disc degeneration, lumbar Surgical History Hx of heart artery stent History of hip replacement History of back surgery Family History Father Heart disease Mother Cancer Social History Alcohol intake: current Alcohol intake frequency: a few times a month Patient Tobacco Use Status: Never used Tobacco Physical Exam Vital Signs: Last Vital Signs Pulse 60 02/18/24 14:38 BP 112/70 02/18/24 14:38 Pulse Ox 100 02/18/24 14:38 Oxygen Delivery Method Room Air 02/18/24 14:38 BMI result Body Mass Index 28.4 Const General: cooperative, comfortable and no acute distress Nutritional Appearance: average body habitus Orientation/consciousness: patient oriented x3 HEENT Head: Yes normal to inspection Neck Other: antecollis, tilted to right restricted range of motion Neuro Other: Mild decreased blink and facial expression slow tongue movements Voice- hypophonia hoarse Right UE moderate amplitude rest tremors Fine Finger movements - mildly decreased cynthia R>L Alternating hand movements - decreased cynthia Hand movements - decreased cynthia Foot taps- decreased cynthia 2+ cog wheel rigidity right UE gait - stooped, mild slowness No arm swing on right, decreased on the left UE General: patient oriented x3 and moves all extremities Cranial nerves: Yes CN's II-XII intact bilaterally, Yes Bilaterally intact EOM present, Yes Normal facial strength present and Yes Midline tongue present Cognition (Neuro): normal cognition Motor exam (neuro): 5/5 motor strength present throughout Coordination: alwmee-uk-jzme test normal Assessment & Plan Assessment & Plan (1) Parkinson's disease without dyskinesia or fluctuating manifestations: Code(s): G20.A1 - Parkinson's disease without dyskinesia, without mention of fluctuations Category: Medical (2) Obstructive sleep apnea: Comment: Mild AHI 7/hr and o2 ramo 81% Code(s): G47.33 - Obstructive sleep apnea (adult) (pediatric) Category: Medical Plan Continue sinemet 25/100 qid [id number] -7pm - side effects discussed He reports orthostasis - suggested to increase fluids. Will consider increasing carbidopa/levodopa and adding northera for orthostatic hypotension after his cardiac evaluation cardiology follow up Coding Level of Care Code Est Pt Level 4 (35626) Complex EM visit Add On G2211 Diagnoses Parkinson's disease without dyskinesia or fluctuating manifestations G20.A1 Obstructive sleep apnea G47.33
[2024-02-18 14:38] VITALS: BP 112/70; PULSE 60; O2SAT 100; BMI 28.4
== END 2024-02-18 15:01 | disposition home or self-care (01) ==
LOC: HO.HSMS 14:33
PROVIDERS: PCP Internal Medicine; Visit Provider Psychiatry & Neurology Neurology
DX: G20.A1 Parkinson's disease without dyskinesia, without mention of fluctuations (principal); G47.33 Obstructive sleep apnea (adult) (pediatric)
CPT/HCPCS: 99214; G2211

== ENCOUNTER → 2024-02-18 14:32 | Outpatient (BNVA) | payer MEDICARE, OTHER, SELFPAY | PROVIDERS: PCP Internal Medicine; Visit Provider Psychiatry & Neurology Neurology | DX: G20.A1 Parkinson's disease without dyskinesia, without mention of fluctuations (principal); G47.33 Obstructive sleep apnea (adult) (pediatric) | CPT/HCPCS: 99212 ==

== ENCOUNTER 2024-02-26 10:56 | Outpatient (REF) | payer MEDICARE, OTHER, SELFPAY | END 2024-02-26 10:57 | disposition home or self-care (01) | LOC: HO.BBR 10:56 | PROVIDERS: PCP Internal Medicine; Visit Provider Internal Medicine Hematology & Oncology | DX: Z13.89 Encounter for screening for other disorder (principal) ==

== ENCOUNTER 2024-03-25 11:03 | Outpatient (REF) | payer MEDICARE, OTHER, SELFPAY ==
[2024-03-25 12:45] LABS: Ferritin 29 ng/mL (20-250)
== END 2024-03-25 11:04 | disposition home or self-care (01) ==
LOC: HO.BBR 11:03
PROVIDERS: PCP Internal Medicine; Visit Provider Internal Medicine Hematology & Oncology
DX: E83.110 Hereditary hemochromatosis (principal)
CPT/HCPCS: 36415; 82728

== ENCOUNTER 2024-04-22 10:58 | Outpatient (REF) | payer MEDICARE, OTHER, SELFPAY | END 2024-04-22 10:59 | disposition home or self-care (01) | LOC: HO.BBR 10:58 | PROVIDERS: PCP Internal Medicine; Visit Provider Internal Medicine Hematology & Oncology | DX: Z13.89 Encounter for screening for other disorder (principal) ==

== ENCOUNTER 2024-06-06 09:44 | Outpatient (AMB) | payer MEDICARE, OTHER, SELFPAY ==
[2024-06-06 09:46] VITALS: BP 118/72; PULSE 61; O2SAT 98; BMI 27.1
--- NOTE | 2024-06-06 09:46 | A.OFFVIS_ITS ---
Vital Signs 06/06/24 09:46 06/06/24 10:53 06/06/24 10:53 Height 6 ft 3 in Weight 217 lb BMI 27.1 BP 118/72 94/60 70/60 L Blood Pressure Location Rt brachial Rt brachial Rt brachial Position Sitting Supine Standing Pulse 61 60 60 Pulse Source Pulse Oximeter Pulse Oximeter Pulse Oximeter Pulse Oximetry (%) 98 100 99 Oxygen Delivery Method Room Air Room Air Room Air Intake Visit Reasons: Follow Up 3 mo Intake Note: Patient here for follow up, per provider workload patient decline CPAP machine Allergies No Known Allergies Allergy (Verified 06/06/24 09:49) Medication List - Last Reconciled 06/06/24 by Yamilet Sierra MD aspirin 81 mg PO DAILY atorvastatin 20 mg PO DAILY carbidopa-levodopa 25-100 mg (Sinemet) 1 tab PO QID dapagliflozin propanediol 10 mg PO DAILY droxidopa (Northera) 200 mg PO TID furosemide 20 mg PO DAILY lisinopril 5 mg PO DAILY nitroglycerin 0.4 mg sublingual Q5M PRN propranolol ER 80 mg PO DAILY rivaroxaban (Xarelto) 20 mg PO DAILY HPI Comments Details: 64y/o right handed male comes for follow up of parkinsons disease.( Multiple system atrophy) His falls have increased preceded by dizziness( vertigo and lightheadedness) He had 15 falls since Feb 2024. He is on sinemet 25/100 qid - no difference in tremors ..He also feels when he is bending over or reaching up. He has REM behavioral disorder - sleep talking PSG showed mild MARGI AHI 7/hr O2 81 %- but patient declines CPAP MRI- showed an acute ischemia in the posterior limb of right IC .He is on Xarelto prescribed by windows software developer Ca doppler was normal. History-He started noticing tremors in his right hand about 2 years ago. It was mild and intermittent initially. now it is more persistent. It is mostly a rest tremors. He has occasional right LE tremors as well.He has mild difficulty with right hand coordination. His speech is mildly softer. He has nighttime drooling. His handwriting is smaller and it is hard to write. No trouble with utensils. He has trouble putting his socks on but thinks its due to back and hip surgery.He has some trouble turning in bed. No trouble with showers. He has gait issues - both cardiac and hip, back pain. His balance is not good . No recent falls. He uses the railing when he is using stairs. He denies memory issues or word finding difficulty . He denies any abnormal behavior in sleep but has trouble getting comfortable in sleep.No mood issues He does not exercise because of dyspnea. He denies nausea, vomiting. He denies constipation. He has vertigo sometimes.no hallucinations.No exposure to chemicals, no head injury . No family h/o parkinsons. He has 2-3 alcoholic drinks a day ( titos seltzer water and cranberry) [facility] Medical History (Updated 06/06/24 @ 10:52 by Yamilet Sierra MD) Orthostatic hypotension due to Parkinson disease Parkinson's disease without dyskinesia or fluctuating manifestations Obstructive sleep apnea CVA (cerebral vascular accident) Abnormal serum iron level Hyperlipidemia HTN (hypertension) CAD (coronary artery disease) Atrial fibrillation Hypersomnia Nocturia Loud snoring Disc degeneration, lumbar Surgical History Hx of heart artery stent History of hip replacement History of back surgery Family History Father Heart disease Mother Cancer Social History Alcohol intake: current Alcohol intake frequency: a few times a month Patient Tobacco Use Status: Never used Tobacco Physical Exam Vital Signs: Last Vital Signs Pulse 61 06/06/24 09:46 BP 118/72 06/06/24 09:46 Pulse Ox 98 06/06/24 09:46 Oxygen Delivery Method Room Air 06/06/24 09:46 BMI result Body Mass Index 27.1 Const General: cooperative, comfortable and no acute distress Nutritional Appearance: average body habitus Orientation/consciousness: patient oriented x3 HEENT Head: Yes normal to inspection Neck Other: antecollis, tilted to right restricted range of motion Neuro Other: Mild decreased blink and facial expression slow tongue movements Voice- hypophonia hoarse Right UE moderate amplitude rest tremors Fine Finger movements - mildly decreased cynthia R>L Alternating hand movements - decreased cynthia Hand movements - decreased cynthia Foot taps- decreased cynthia 2+ cog wheel rigidity right UE gait - stooped, mild slowness No arm swing on right, decreased on the left UE General: patient oriented x3 and moves all extremities Cranial nerves: Yes CN's II-XII intact bilaterally, Yes Bilaterally intact EOM present, Yes Normal facial strength present and Yes Midline tongue present Cognition (Neuro): normal cognition Motor exam (neuro): 5/5 motor strength present throughout Coordination: [id number]-um-[id number] test normal Assessment & Plan Assessment & Plan (1) Parkinson's disease without dyskinesia or fluctuating manifestations: Code(s): G20.A1 - Parkinson's disease without dyskinesia, without mention of fluctuations Category: Medical (2) Obstructive sleep apnea: Comment: Mild AHI 7/hr and o2 ramo 81% Code(s): G47.33 - Obstructive sleep apnea (adult) (pediatric) Category: Medical (3) Orthostatic hypotension due to Parkinson disease: Code(s): G90.3 - Multi-system degeneration of the autonomic nervous system Category: Medical Plan Continue sinemet 25/100 qid [id number] -7pm - side effects discussed. I will trial him on droxidopa 200mg tid cardiology follow up( [facility] ) ( Dr.Brian Russ)- can propranolol dose be decreased Ortho BP 94/60 and standing 70/60 TN 60 - patient very symptomatic Medications: New droxidopa (Northera) give consistently with OR without food, upon rising, at midday, late PM/at least 3hrs before bedtime 200 mg PO TID 90 caps 6RF Coding Level of Care Code Est Pt Level 4 (09377) Complex EM visit Add On G2211 Diagnoses Parkinson's disease without dyskinesia or fluctuating manifestations G20.A1 Obstructive sleep apnea G47.33 Orthostatic hypotension due to Parkinson disease G90.3
--- OUTSIDE RECORDS SUMMARY | 2024-06-06 10:39 | XMS_ITS | Encounter Summary ---
Author Organization [facility] Address [address] [place] [address] Care Team Providers Care Engineer Specialist Name Role Phone Delphine Shaw MD Primary Care Provider [phone] Reason for Visit * Reason Onset Date Comments Referral - Lung Txp 05/18/2024 Encounter Details Date Type Department Care Team (Late st Contact Info) Description 05/18/2024 Telephone Adult Medicine [facility] [address] [place] [phone] Delphine Shaw MD [address] [place] [address] Referral - Lung Txp Social History Tobacco Use Types Packs/Day Years [...] on file documented as of this encounter Progress Notes * Mirta Mello RN - 05/20/2024 9:04 AM EST Call to pt. Left message for pt to call triage * Nury Walls - 05/19/2024 1:44 PM EST Sorry , he wants to see [facility] however he states he wants to be seen because he is having issues with feeling weak, dizzy and falling. States his cardiologists said the heart is good but should see cardiology * Nury Walls - 05/19/2024 1:42 PM EST Patient returning phone call. States he wants to see a oracle bpm developer for his ingrown toenails and will see Dr Cervantes or someone in that group. * Fabiana Caro RN - 05/19/2024 12:23 PM EST Called pt left vm to return call we need more information to process referral diagnosis and who does pt want to see? * Adelaide Iverson - 05/18/2024 1:48 PM EST Referral Request: What insurance does the patient have today? Payor: [place] [email or web address] MEDICARE / Plan: [place] [facility] / Product Type: *No Product type* / Referrals cannot be processed if the insurance is not accurate. If the insurance listed above in red is NO BILLING INFORMATION FOUND FOR THIS ENCOUTNER The patients correct insurance must be obtained and registered in [facility] or their referral can not be processed. Is this a retro request? no. If yes for what date of service do you need the retro referral? not applicable Who is calling to request this referral? [place] If the caller is not the patient, what is their name? 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 If YES, when? No Have you checked REVIEW or the APPT DESK to see if this referral has already been done or has visits left? no Is this visit: Initial Visit Address of Specialist: Phone # of Specialist: Fax #: (if applicable): Does patient have an appointment scheduled?: no Date of appointment- (including a retro-request): Is this appointment related to: Not MVA, worker compensation, or surgery related documented in this encounter Plan of Treatment Upcoming Encounters Date Type Department Care Team (Late st Contact Info) Description 08/10/2024 10:45 AM EDT Office Visit [facility] Hematology Oncology [address] [place] [phone] Kyaw Gan MD [address] [place] [phone] documented as of this encounter Visit Diagnoses Not on filedocumented in this encounter Care Teams Engineer Specialist Relationship Specialty Start Date End Date Delphine Shaw MD [address] [place] [phone] PCP - General 08/05/1997 documented as of this encounter
--- OUTSIDE RECORDS SUMMARY | 2024-06-06 10:39 | XMS_ITS | Clinical Summary ---
Author Organization [facility] Address [address] [place] [address] Care Team Providers Care Principal Law Clerk Name Role Phone Delphine Shaw MD Primary Care Provider [phone] Allergies No known active allergies Medications Medication Sig Dispensed Refills Start Date End Date Status atorvastatin (LIPITOR) tablet 20 mg Take 1 tablet (20 mg total) by mouth daily. 0 Active nitroglycerin (NITROSTAT) 0.[address] 1 tablet (0.4 mg total) under the tongue every 5 (five) minutes as needed for chest pain. 0 Active metoprolol tartrate (LOPRESSOR) 25 MG tablet Take 1 tablet (25 mg total) by mouth 2 (two) times a day. 0 Active lisinopril (PRINIVIL,ZESTRIL) tablet 5 mg Take 1 tablet (5 mg total) by mouth daily. 0 Active Multiple Vitamin (MULTIVITAMIN ADULT PO) Take by mouth. 0 Active apixaban (ELIQUIS) 5 MG TABS tablet Take 1 tablet (5 mg total) by mouth every 12 (twelve) hours. 0 Active gabapentin (NEURONTIN) 300 MG capsule Take 1 capsule (300 mg total) by mouth 3 (three) times a day. 0 Active rivaroxaban (XARELTO) 20 MG TABS tablet Take by mouth. 0 Act mariana propranolol (INDERAL LA) 120 MG 24 hr capsule Take 1 capsule (120 mg total) by mouth daily. 0 Active furosemide (LASIX) 20 MG tablet Take 1 tablet (20 mg total) by mouth 2 (two) times a day. 0 Active carbidopa-levodopa (SINEMET) 25-100 MG per tablet Take by mouth 3 (three) times a day. 0 Active Active Problems Problem Noted Date Diagnosed Date Hereditary hemochromatosis 09/09/2021 DDD (degenerative disc disease), lumbar 02/06/20 21 Lumbar radiculopathy 02/05/2021 Family History Medical History Relation Name Comments Cancer Mother Relation Name Status Comments Mother Social History Tobacco Use Types Packs/Day Years Used Date Smoking Tobacco: Never Smokeless Tobacco: Never Alcohol Use Standard Drinks/Week Comments Yes 0 (1 standard drink = 0.6 oz pur e alcohol) occasionally Sex and Gender Information Value Date Recorded Sex Assigned at Male 02/01/2021 10:28 AM EDT Gender Identity Not on file Sexual Orientation Not on file Job Start Date Occupation Industry Not on file Not on file Not on file Last Filed Vital Signs Vital Sign Reading Time Taken Comments Blood Pressure 139/82 01/11/2024 10:42 AM EDT Pulse 65 01/11/2024 10:42 AM EDT Temperature 36.8 ??C (98.3 ??F) 01/11/2024 10:42 AM E DT Respiratory Rate 22 02/05/2021 11:38 AM EDT Oxygen Saturation 100% 01/11/2024 10:42 AM EDT Inhaled Oxygen Concentration - - Weight 103 kg (227 lb) 01/11/2024 10:42 AM EDT Height 190.5 cm (6' 3 ) 01/11/2024 10:42 AM EDT Body Mass Index 28.37 01/11/2024 10:42 AM EDT Plan of Treatment Health Maintenance Due Date Last Done Comments Hepatitis C Screening 1958 Depression Screening 1970 BMI Counseling 02/25/1976 Preventative Health Evaluation 02/25/1976 Colon Cancer Screening (Colonoscopy) 2003 Pneumococcal Vaccine (2 of 2 - PCV) 03/17/2007 03/17/2006 Shingrix-Zoster Vaccine (1 of 2) 02/25/2008 DTap / Tdap / Td (2 - Td or Tdap) 09/22/2022 09/22/2012, 08/12/2004 Fall Risk Assessment 2023 COVID-19 Vaccine (2 - season) 2023 04/05/2021 Influenza Vaccine (#1) 2023 , 04/05/2021, 01/11/2010, Additional history exists RSV Adult > 60+ Yrs or (1 - 1-dose 75+ series) 2033 Hepatitis B Vaccines Aged Out No long er eligible based on patient's age to complete this topic RSV Ped < 20 months Aged Out No longe r eligible based on patient's age to complete this topic Care Teams Principal Law Clerk Relationship Specialty Start Date End Date Delphine Shaw MD PCP - General Internal Medicine 01/16/20
--- OUTSIDE RECORDS SUMMARY | 2024-06-06 10:39 | XMS_ITS | Encounter Summary ---
Author Organization [facility] Address [address] [place] [address] Care Team Providers Care Discharge Planner Name Role Phone Delphine Shaw MD Primary Care Provider [phone] Reason for Visit * Reason Comments Follow-up * Hospital - Outpatient (Routine) - Authorized Specialty Diagnoses / Procedures Referred By Contac t Referred To Contact Oncology / Hematology and Oncology Diagnoses 4 mo labs prior Procedures FOLLOW UP Delphine Shaw MD [address] [place] [id number] Phone: tel: fax: Kyaw Gan MD [address] [place] [phone] Phone: tel: fax: Referral ID Status Reason Start Date Expiration Date V isits Requested Visits Authorized [id number] Authorized 01/11/2024 01/09/2025 10 10 Encounter Details Date Type Department Care Team (Latest Contact Info) Description 05/12/2024 10:45 AM EST Office Visit [facility] Hematology Oncology [address] [place] [phone] Kyaw Gan MD [address] [place] [address] Hereditary hemochromatosis (CMS/HCC) (Primary Dx) Social History Tobacco Use Types Packs/Day Years Used Date Smoking Tobacco: Never Smokeless Tobacco: Never Tobacco Cessation:Counseling Given: Not Answered Alcohol Use Standard Drinks/Week Comments No 0 (1 standard drink = 0.6 oz pur e alcohol) Sex and Gender Information Value Date Recorded Sex Assigned at Not on file Legal Sex Male 2:01 AM EST Gender Identity Not on file Sexual Orientation Not on file documented as of this encounter Last Filed Vital Signs Vital Sign Reading Time Taken Comments Blood Pressure 113/76 05/12/2024 11:06 AM EST Pulse 61 05/12/2024 11:06 AM EST Temperature 36.6 ??C (97.8 ??F) 05/12/2024 11:[address] Respiratory Rate - - Oxygen Saturation 100% 05/12/2024 11:06 AM EST Inhaled Oxygen Concentration - - Weight 99.3 kg (219 lb) 05/12/2024 11:06 AM EST Height - - Body Mass Index 27.37 01/18/2024 10:07 AM EDT documented in this encounter Progress Notes * Kyaw Gan MD - 05/12/2024 10:45 AM EST Diagnosis/treatment: Hereditary hemochromatosis with C282Y homozygosity. The patient undergoes phlebotomies every 4 weeks. Interval history: The patient is a 64-year-old alcohol drinking gentleman who had a history of a transaminitis datingback to 2007. An abdominal ultrasound at that time was reportedly normal. LFTs on 09/13/2019 showed transaminitis with AST 53 and ALT 68. A percent transferrin saturation was markedly elevated at 98. Aferritin was 1973. An abdominal ultrasound 09/29/2019 showed coarsened hepatic echotexture and mild splenomegaly at 15.2 cm. Abdominal MRI with contrast on 11/24/2019 showed persistent diffuse low signal throughout the liver, consistent with excess iron deposition. Hereditary hemochromatosis genetic testing in 05/2020 showed C282Y homozygosity. The patient was started on a phlebotomy regimen every 2 weeks since 07/2020 at [facility]. He toleratesphlebotomies reasonably well. He reports mild fatigue of the days following phlebotomies. A CBC on 05/23/2020 showed WBC 4.5, hemoglobin 13.8 with MCV 100, platelet 133,000. A review of [facility] laboratory data is as below: A ferritin on 05/31/2020 was 3082. A ferritin on 06/15/2020 was 3303. A ferritin of 08/31/2020 was 2413. A ferritin on 12/21/2020 was 954. A ferritin on 02/15/2021 was 1331. A ferritin on 04/04/2021 was 1128. A ferritin on 04/18/2021 was 823. A ferritin of 07/18/2021 was 647. A ferritin on 08/06/2021 was 445. LFTs on 08/27/2021 were normal. A ferritin on 09/05/2021 was 534. A ferritin on 09/23/2021 was 601. A ferritin on 10/07/2021 was 554. A ferritin on 10/21/2021 was 428. A ferritin on 01/29/2022 was 316. A ferritin on 02/12/2022 was 309. A ferritin on 02/26/2022 was 257. A ferritin on 03/31/2022 was 204. A ferritin on 06/03/2022 was 116. We held phlebotomies following the last week and 05/2022 due to planned right hip replacement. He underwent a right hip replacement 06/20/2022. A CBC of 08/18/2022 showed WBC 5.0, hemoglobin 13.8 with MCV 99, and platelet count 150,000. A percent transferrin saturation was 26. A ferritin was 54. A creatinine was 0.9. LFTs were normal apart from a minimal elevation of alkaline phosphatase to 123. A CBC on 12/19/2022 showed WBC 6.7, hemoglobin 13.5 with MCV 95, and platelet count 177,000. A percent transferrin saturation was 22. A ferritin was 25. A creatinine was 1.0. LFTs were normal. A CBC on 04/20/2023 showed WBC 7.4, hemoglobin 11.8 with MCV 91, and platelet count 203,000. A percent transferrin saturation was 19. A ferritin was 22. A creatinine was 1.1. LFTs were normal. A CBC on 09/03/2023 showed WBC 5.7, hemoglobin 11.7 with MCV 96, and platelet count 158,000. A percent transferrin saturation was 19. A ferritin was 16. A creatinine was 1.0. LFTs were normal. A CBC on 01/05/2024 showed WBC 4.8, hemoglobin 12.7 with MCV 99, and platelet count 136,000. A percent transferrin saturation was 50. A ferritin was 35. A creatinine was 1.0. LFTs were normal. A CBC on 05/05/2024 showed WBC 6.2, hemoglobin 12.4 with MCV 101, and platelet count 163,000. A percent transferrin saturation was 19. A ferritin was 19. A creatinine was 0.5. LFTs were normal. Several phlebotomies have been held in 2022 in 2023 due to a low hemoglobin. He reports frequent dizziness and occasional syncopal episodes since early 2023. He is followed by a [facility]. He was diagnosed with Parkinson's disease. He reports chronic mild dyspnea on exertion, which he attributes to atrial fibrillation. He denies cough or hemoptysis. He reports chronic mild bilateral lower extremity edema. He denies nausea or abdominal pain. He denies unusual bone pain. He reports an intact appetite and stable weight. He admits to continued alcohol use, drinking 3 drinks per day on weekends. Review of systems: The remainder of a 10 point review of systems was unremarkable. Physical examination: HEENT: Sclerae anicteric, normal oropharyngeal membrane. Neck: No lymphadenopathy. Lungs: Clear to auscultation. Heart: No murmurs. Abdomen: Soft, nontender, no organomegaly or masses. Extremities: Mild bilateral lower extremity edema. Skin: No rash. Neurologic: Normal gait. Assessment/plan: The patient is a 64-year-old gentleman with hereditary hemochromatosis with C282Y homozygosity who is maintained on phlebotomy regimen every 2 weeks. He tolerates phlebotomies reasonably well. He reports mild fatigue the following day. The ferritin level has come down below 50. LFTs in 08/2021 normalized. We held phlebotomies following the last week and 05/2022 due to planned right hip replacement. He underwent a right hip replacement 06/20/2022. He has been receiving phlebotomies every 2 weeks. Several phlebotomies have been held in 2022 and 2023 due to a low hemoglobin. We continued with phlebotomies every 4 weeks. He reports frequent dizziness and occasional syncopal episodes since early 2023. He is followed by a [employer]. We will hold the phlebotomy regimen to determine if the dizziness and syncope is related to the iron deficiency anemia. We will monitor CBCs, LFTs, and iron studies. Visit summary: The patient is a 64-year-old gentleman with hereditary hemochromatosis who was managed on a phlebotomy regimen. The ferritin level remains below the target of 50. Tolerates phlebotomies reasonably well. He reports frequent dizziness and occasional syncopal episodes since early 2023, possibly cardiac in etiology. He is followed by [facility]. We will hold a phlebotomy regimen to determine if thedizziness and syncope is related to the iron deficiency anemia. This encounter is of moderate risk. 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 He is treated with phlebotomies. documented in this encounter Plan of Treatment Upcoming Encounters Date Type Department Care Team (Late st Contact Info) Description 08/10/2024 10:45 AM EDT Office Visit [facility] Hematology Oncology [address] [place] [phone] Kyaw Gan MD [address] [place] [id number] Scheduled Orders Name Type Priority Associated Diagnoses Orde r Schedule CBC and differential Lab Routine Hereditary hemochromatosis (CMS/HCC) Every 12 weeks for 4 Occurrences starting 05/12/2024 until 05/12/2025 Comprehensive metabolic panel Lab Routine Hereditary hemochromatosis (CMS/HCC) Every 12 weeks for 4 Occurrences starting 05/12/2024 until 05/12/2025 Ferritin Lab Routine Hereditary hemochromatosis (CMS/HCC) Every 12 weeks for 4 Occurrences starting 05/12/2024 until 05/12/2025 Iron and TIBC Lab Routine Hereditary hemochromatosis (CMS/HCC) Every 12 weeks for 4 Occurrences starting 05/12/2024 until 05/12/2025 documented as of this encounter Visit Diagnoses Diagnosis Hereditary hemochromatosis (CMS/HCC)- Primary Hereditary hemochromatosis documented in this encounter Discontinued Medications Medication Sig Discontinue Reason Start Date End Da te Allergy Relief, cetirizine, 10 mg tablet TAKE 1 TABLET BY MOUTH EVERY DAY 04/15/2024 05/12/2024 gabapentin (NEURONTIN) 300 mg capsule Take 1 capsule (300 mg total) by mouth 3 (three) times a day. 05/12/2024 documented as of this encounter Care Teams Discharge Planner Relationship Specialty Start Date End Date Delphine Shaw MD [address] [place] [address] PCP - General 08/05/1997 documented as of this encounter
--- OUTSIDE RECORDS SUMMARY | 2024-06-06 10:39 | XMS_ITS | Encounter Summary ---
Author Organization [facility] Address [address] [place] [address] Care Team Providers Care Senior Investigator Name Role Phone Delphine Shaw MD Primary Care Provider [phone] Encounter Details Date Type Department Care Team (Late Contact Info) Description 01/11/2024 10:45 AM EDT Hospital Encounter TH HISTORIC ENCOUNTERS [facility]AST[facility] CONVERSION ONLY Kyaw Gan MD [address] [place] [address] Social History Tobacco Use Types [...] Department Care Team (Late Contact Info) Description 08/10/2024 10:45 AM EDT Office Visit [facility] Hematology Oncology [address] [place] [phone] Kyaw Gan MD [address] [place] [address] documented as of this encounter Visit Diagnoses Not on filedocumented in this encounter Care Teams Senior Investigator Relationship Specialty Start Date End Date Delphine Shaw MD [address] [place] [id number] PCP - General 08/05/1997 documented as of this encounter
--- OUTSIDE RECORDS SUMMARY | 2024-06-06 10:39 | XMS_ITS | Clinical Summary ---
Author Organization [facility] Address [address] [place] [phone] Phone Care Team Providers Care Director Of Direct Marketing Name Role Phone Delphine Shaw MD Primary Care Provider [phone] Allergies No known active allergies Medications multivitamin (MULTIPLE VITAMINS ORAL) Take by mouth. Active apixaban (ELIQUIS) 5 mg tablet Take 1 tablet (5 mg total) by mouth every 12 (twelve) hours. Active atorvastatin (LIPITOR) 20 mg tablet Take 1 tablet (20 mg total) by mouth daily. Active carbidopa-levo dopa (SINEMET) 25-100 mg per tablet Take by mouth 3 (three) times a day. Active furosemide (LASIX) 20 mg tablet Take 1 tablet (20 mg total) by mouth 2 (two) times a day. Active lisinopriL (PRINIVIL,ZEST RIL) 5 mg tablet Take 1 tablet (5 mg total) by mouth daily. Active metoprolol tartrate (LOPRESSOR) 25 mg tablet Take 1 tablet (25 mg total) by mouth 2 (two) times a day. Active nitroglycerin (NITROSTAT) 0.[address] 1 tablet (0.4 mg total) under the tongue every 5 (five) minutes as needed for chest pain. Active propranolol LA (INDERAL LA) 120 mg 24 hr capsule Take 1 capsule (120 mg total) by mouth daily. Active rivaroxaban (XARELTO) 20 mg tablet Take by mouth. Active gabapentin (NEURONTIN) 300 mg capsule Take 1 capsule (300 mg total) by mouth 3 (three) times a day. 05/12/19 25 Discontinued Allergy Relief, cetirizine, 10 mg tablet TAKE 1 TABLET BY MOUTH EVERY DAY 90 tablet 05/12/19 25 Discontinued Active Problems Problem Noted Date Diagnosed Date Hereditary hemochromatosis 09/09/2021 DDD (degenerative disc disease), lumbar 02/06/20 21 Lumbar radiculopathy 02/05/2021 Encounters Date Type Department Care Team Description 05/18/2024 Telephone Adult Medicine [address] [phone] Delphine Shaw MD Referral 05/18/2024 Telephone Adult Medicine [address] [phone] Delphine Shaw MD Referral - Lung Txp 05/12/2024 10:45 AM EST Office Visit [facility] Hematology Oncology [address] [place] [address] Kyaw Gan MD Hereditary hemochromatosis (CMS/HCC) (Primary Dx) from Last 3 Months Surgical History Surgery Date Site/Laterality Comments COLONOSCOPY 04/11/2008 PROCEDURE:COLONOSCOPY CORONARY ANGIOPLASTY WITH STENT PLACEMENT PROCEDURE:CORONARY ANGIOPLASTY WITH STENT PLACEMENT LUMBAR EPIDURAL INJECTION 02/05/2021 Right PROCEDURE:LUMBAR EPIDURAL INJECTION;COMMENT:Procedure: INJECTION ANESTHETIC AGENT LUMBAR; Surgeon: Bernice Schulz MD; Location: [facility]; Service: Rehab Medicine; Laterality: Right; COLONOSCOPY 04/11/08 PROCEDURE: HISTORICAL COLONOSCOPY; COMMENT: normal; repeat in ten years Medical History Medical History Date Comments Hemochromatosis DX:Hemochromatos is Hypertension DX:Hypertension Pure hypercholesterolemia DX:Pur e hypercholesterolemia Alcohol abuse DX:Alcohol abuse Coronary artery disease DX:Coron noemí artery disease Thrombocytopenia (CMS/HCC) DX:Th rombocytopenia (HCC) Myocardial infarction (CMS/HCC) DX:Myocardial infarction (HCC) Coronary atherosclerosis of unspecified type of vessel, [place] or graft 10/10/2005 DX:Coronary atherosclerosis of unspecified type of vessel, [place] or graft; COMMENT: stent to 100% LAD 09/16 at [facility] Pure hypercholesterolemia 10/10/2005 DX:Pur e hypercholesterolemia Alcohol abuse 02/29/2008 DX:Alcohol abuse ; COMMENT: Followed by Psychiatry, Pt last use of ETOH 01/18 Essential hypertension, benign 10/10/2005 D X:Essential hypertension, benign Family History Medical History Relation Name Comments No Known Problems Brother Dementia Father Heart attack Father age 50 Cancer Mother Lung cancer Mother Heart attack Paternal Grandfather age 60 No Known Problems Sister Relation Name Status Comments Brother Alive Father Mother Paternal Grandfather Sister Alive Social History Tobacco Use Types Packs/Day Years [...] on file Sexual Orientation Not on file Obstetrics History Last Filed Vital Signs Vital Sign Reading Time Taken Comments Blood Pressure 113/76 05/12/2024 11:06 AM EST Pulse 61 05/12/2024 11:06 AM EST Temperature 36.6 ??C (97.8 ??F) 05/12/2024 11:[address] Respiratory Rate - - Oxygen Saturation 100% 05/12/2024 11:06 AM EST Inhaled Oxygen Concentration - - Weight 99.3 kg (219 lb) 05/12/2024 11:06 AM EST Height 190.5 cm (6' 3 ) 01/18/2024 10:07 AM EDT Body Mass Index 27.37 01/18/2024 10:07 AM EDT Plan of Treatment Upcoming Encounters Date Type Department Care Team (Late st Contact Info) Description 08/10/2024 10:45 AM EDT Office Visit [facility] Hematology Oncology [address] [place] [phone] Kyaw Gan MD [address] [place] [phone] Health Maintenance Due Date Last Done Comments Hepatitis A Vaccines (1 of 2 - Risk 2-dose series) 1977 Pneumococcal Vaccine: 50+ Years (2 of 2 - PCV) 03/17/2007 03/17/2006 Zoster Vaccines (1 of 2) 02/25/2008 RSV Immunization Patients 60+ Years Old (1 - Risk 60-74 years 1-dose series) 2018 Cholesterol Screening (Lipid Panel) 03/16/2022 Colorectal Cancer Screening: Colonoscopy 03/16/2022 Depression Screening 03/16/2022 Hepatitis C Screening 03/16/2022 Medicare Annual Wellness Visit 03/16/2022 Social Influencers of Health Screening 03/16/2022 DTaP,Tdap,and Td Vaccines (3 - Td or Tdap) 09/22/2022 09/22/2012, 08/12/2004 Falls Risk Assessment 2023 COVID-19 Vaccine ( season) 2023 04/30/2022, 04/05/2021, 05/25/2020, Additional history exists Influenza Vaccine (#1) 2023 , 04/05/2021, 01/11/2010, Additional history exists Hypertension/CHF/CAD Annual BMP Blood Test 05/05/2025 05/05/2024 HIB Vaccines Aged Out No longer eligi ble based on patient's age to complete this topic HPV Vaccines Aged Out No longer eligi ble based on patient's age to complete this topic Hepatitis B Vaccines Aged Out No long er eligible based on patient's age to complete this topic IPV Vaccines Aged Out No longer eligi ble based on patient's age to complete this topic MMR Vaccines Aged Out No longer eligi ble based on patient's age to complete this topic Meningococcal ACWY Vaccine Aged Out N o longer eligible based on patient's age to complete this topic Meningococcal B Vacine Aged Out No lo nger eligible based on patient's age to complete this topic RSV Immunization Patients Under 20 months Aged Out No longer eligible based on patient's age to complete this topic Varicella Vaccines Aged Out No longer eligible based on patient's age to complete this topic Procedures Procedure Name Priority Date/Time Associated Diagnosis Comments CBC WITH AUTO DIFFERENTIAL Routine 05/05/2024 11:55 AM EST Pigment cirrhosis (CMS/HCC) IRON AND TIBC Routine 05/05/2024 11:55 AM EST Pigment cirrhosis (CMS/HCC) CBC AND DIFFERENTIAL Routine 05/05/2024 11:55 AM EST Pigment cirrhosis (CMS/HCC) FERRITIN Routine 05/05/2024 11:55 AM EST Pigment cirrhosis (CMS/HCC) COMPREHENSIVE METABOLIC PANEL Routine 05/05/2024 11:55 AM EST Pigment cirrhosis (CMS/HCC) from Last 3 Months Results * (ABNORMAL) CBC auto differential (05/05/2024 11:55 AM EST) Pathologist [facility] WBC 6.2 4.8 - 10.8 K/mcL LAB HEMETOLOGY METHOD 05/05/2024 1:08 PM [facility] RBC 3.80(L) 4.50 - 5.50 M/mcL LAB HEMETOLOGY METHOD 05/05/2024 1:08 PM [facility] Hemoglobin 12.4(L) 13.5 - 17.5 g/dL LAB HEMETOLOGY METHOD 05/05/2024 1:08 PM [facility] Hematocrit 38.7(L) 42.0 - 54.0 % LAB HEMETOLOGY METHOD 05/05/2024 1:08 PM [facility] MCV 100.8(H) 79.0 - 98.0 FL LAB HEMETOLOGY METHOD 05/05/2024 1:08 PM [facility] MCH 32.3(H) 27.0 - 32.0 pcg LAB HEMETOLOGY METHOD 05/05/2024 1:08 PM [facility] MCHC 32.0 32.0 - 37.0 g/dL LAB HEMETOLOGY METHOD 05/05/2024 1:08 PM [facility] RDW 12.4 11.0 - 15.0 % LAB HEMETOLOGY METHOD 05/05/2024 1:08 PM [facility] Platelets 163 130 - 400 K/mcL LAB HEMETOLOGY METHOD 05/05/2024 1:08 PM [facility] MPV 10.9 7.0 - 11.0 FL LAB HEMETOLOGY METHOD 05/05/2024 1:08 PM [facility] NRBC 0.0 <1.0 % LAB HEMETOLOGY METHOD 05/05/2024 1:08 PM [facility] NRBC Absolute 0.00 <0.10 K/mcL LAB HEMETOLOGY METHOD 05/05/2024 1:08 PM [facility] Neutrophils Relative 61.8 % LAB HEMETOLOGY METHOD 05/05/2024 1:08 PM [facility] Lymphocytes Relative 24.5 % LAB HEMETOLOGY METHOD 05/05/2024 1:08 PM [facility] Monocytes Relative 11.7 % LAB HEMETOLOGY METHOD 05/05/2024 1:08 PM [facility] Eosinophils Relative 1.1 % LAB HEMETOLOGY METHOD 05/05/2024 1:08 PM [facility] Basophils Relative 0.6 % LAB HEMETOLOGY METHOD 05/05/2024 1:08 PM [facility] Immature Granulocytes Relative 0.3 % LAB HEMETOLOGY METHOD 05/05/2024 1:08 PM [facility] Neutrophils Absolute 3.80 1.50 - 7.00 K/mcL LAB HEMETOLOGY METHOD 05/05/2024 1:08 PM [facility] Lymphocytes Absolute 1.51 1.00 - 5.00 K/mcL LAB HEMETOLOGY METHOD 05/05/2024 1:08 PM [facility] Monocytes Absolute 0.72 0.20 - 1.00 K/mcL LAB HEMETOLOGY METHOD 05/05/2024 1:08 PM [facility] Eosinophils Absolute 0.07 0.00 - 0.50 K/mcL LAB HEMETOLOGY METHOD 05/05/2024 1:08 PM [facility] Basophils Absolute 0.04 0.00 - 0.20 K/mcL LAB HEMETOLOGY METHOD 05/05/2024 1:08 PM EST [facility] Immature Granulocytes Absolute 0.02 0.00 - 0.03 K/mcL LAB HEMETOLOGY METHOD 05/05/2024 1:08 PM EST [facility] Blood Venous blood specimen / Unknown Venipuncture / Unknown 05/05/2024 11:55 AM EST 05/05/2024 12:51 PM EST Kyaw Gan MD LAB BLOOD ORDERABLES Final Result [facility] [address] [place] [address], [place] [phone] * (ABNORMAL) Iron and TIBC (05/05/2024 11:55 AM EST) Iron 62 50 - 160 mcg/dL LAB CHEMISTRY METHOD 05/05/2024 1:49 PM EST [facility] TIBC 363 250 - 450 mcg/dL LAB CHEMISTRY METHOD 05/05/2024 1:49 PM [facility] Iron Saturation 17(L) 20 - 50 % LAB CHEMISTRY METHOD 05/05/2024 1:49 PM [facility] Blood Venous blood specimen / Unknown Venipuncture / Unknown 05/05/2024 11:55 AM EST 05/05/2024 12:51 PM EST Kyaw Gan MD LAB BLOOD ORDERABLES Final Result [facility] [address] [place] [address], [place] [phone] * (ABNORMAL) Ferritin (05/05/2024 11:55 AM EST) Ferritin 19(L) 26 - 388 ng/mL LAB CHEMISTRY METHOD 05/05/2024 1:49 PM EST [facility] Blood Venous blood specimen / Unknown Venipuncture / Unknown 05/05/2024 11:55 AM EST 05/05/2024 12:51 PM EST Kyaw Gan MD LAB BLOOD ORDERABLES Final Result [facility] [address] [place] [address], [place] [phone] * (ABNORMAL) Comprehensive metabolic panel (05/05/2024 11:55 AM EST) Sodium 135 133 - 145 mmol/L LAB CHEMISTRY METHOD 05/05/2024 2:39 PM [facility] Potassium 4.7 3.5 - 5.5 mmol/L LAB CHEMISTRY METHOD 05/05/2024 2:39 PM [facility] Chloride 107 96 - 110 mmol/L LAB CHEMISTRY METHOD 05/05/2024 2:39 PM [facility] CO2 26 21 - 32 mmol/L LAB CHEMISTRY METHOD 05/05/2024 2:39 PM [facility] Anion Gap 2(L) 3 - 11 LAB CHEMISTRY METHOD 05/05/2024 2:39 PM [facility] Glucose 93 70 - 100 mg/dL LAB CHEMISTRY METHOD 05/05/2024 2:39 PM [facility] BUN 35(H) 5 - 25 mg/dL LAB CHEMISTRY METHOD 05/05/2024 2:39 PM [facility] Creatinine 1.45(H) 0.70 - 1.30 mg/dL LAB CHEMISTRY METHOD 05/05/2024 2:39 PM [facility] eGFR 53(L) >=60 mL/min/1. 73m2 LAB CHEMISTRY METHOD 05/05/2024 2:39 PM [facility] Comment:Calculation based on the??Chronic Kidney Disease Epidemiology Collaboration (CKD-EPI) equation refit??without adjustment for race. BUN/Creatinine Ratio 24.1 LAB CHEMISTRY METHOD 05/05/2024 2:39 PM [facility] Calcium 8.8 8.5 - 10.5 mg/dL LAB CHEMISTRY METHOD 05/05/2024 2:39 PM [facility] AST (SGOT) 24 10 - 42 unit/L LAB CHEMISTRY METHOD 05/05/2024 2:39 PM [facility] ALT (SGPT) 30 10 - 60 unit/L LAB CHEMISTRY METHOD 05/05/2024 2:39 PM [facility] Alkaline Phosphatase 88 42 - 121 unit/L LAB CHEMISTRY METHOD 05/05/2024 2:39 PM [facility] Total Protein 6.8 6.0 - 8.0 g/dL LAB CHEMISTRY METHOD 05/05/2024 2:39 PM [facility] Albumin 4.2 3.2 - 5.0 g/dL LAB CHEMISTRY METHOD 05/05/2024 2:39 PM [facility] Total Bilirubin 0.9 0.0 - 1.4 mg/dL LAB CHEMISTRY METHOD 05/05/2024 2:39 PM [facility] Blood Venous blood specimen / Unknown Venipuncture / Unknown 05/05/2024 11:55 AM EST 05/05/2024 12:51 PM EST us Kyaw Gan MD LAB BLOOD ORDERABLES Final Result [facility] [address] [place] [address], from Last 3 Months Insurance [employer] Care Teams Director Of Direct Marketing Relationship Specialty Start Date End Date Delphine Shaw MD [address] [place] [address] PCP - General 08/05/1997
--- OUTSIDE RECORDS SUMMARY | 2024-06-06 10:39 | XMS_ITS | Encounter Summary ---
Author Organization [facility] Address [address] [place] [address] Care Team Providers Care Socket Puller Name Role Phone Delphine Shaw MD Primary Care Provider [phone] Reason for Referral * Consultation (Routine) - Pending Review Specialty Diagnoses / Procedures Referred By Marsha shafer Referred To Contact Podiatry Diagnoses Ingrown nail of great toe Delphine hSaw MD [address] [place] [phone] Phone: tel: fax: Referral ID Status Reason Start Date Expiration Date Visits Requested Visits Authorized [id number] Pending Review Specialty Services Required 05/23/2024 05/23/2025 1 1 Reason for Visit * Reason Onset Date Comments Referral 05/18/2024 Encounter Details Date Type Department Care Team (Late st Contact Info) Description 05/18/2024 Telephone Adult Medicine [address] [phone] Delphine Shaw MD [address] [place] [phone] Referral Social History Tobacco Use Types Packs/Day Years [...] as of this encounter Progress Notes * Nury Walls - 05/19/2024 1:46 PM EST Patient would like to be seen for ingrown toenails and will see Dr Cervantes or someone within [facility] * Fabiana Caro RN - 05/19/2024 12:24 PM EST Called pt left vm to return call we need more information to process pts referral requests we have no diagnosis for them or who pt wants to see!!? * Adelaide Kishor - 05/18/2024 1:50 PM EST Referral Request: What insurance does the patient have today? Payor: [employer] / [facility] [place] / Product Type: *No Product type* / Referrals cannot be processed if the insurance is not accurate. If the insurance listed above in red is NO BILLING INFORMATION FOUND FOR THIS ENCOUTNER The patients correct insurance must be obtained and registered in [facility] or their referral can not be [...] PATIENT is seeing: What specialty is this? podiatry DIAGNOSIS Patient is being seen for (Not a body part or a procedure): Have you seen this SPECIALIST for this PROBLEM/DX before? If YES, when? No Have you checked REVIEW or the APPT DESK to see if this referral has already been done or has visits left? yes Is this visit: Initial Visit Address of [...] Description 08/10/2024 10:45 AM EDT Office Visit [facility] Hematology Oncology [address] [place] [address] Kyaw Gan MD [address] [place] [phone] Scheduled Referrals Name Type Priority Associated Diagnoses Order Schedule Ambulatory referral to Podiatry Outpatient Referral Routine Ingrown nail of great toe 1 Occurrences starting 05/23/2024 until 05/19/2025 documented as of this encounter Visit Diagnoses Diagnosis Ingrown nail of great toe- Primary documented in this encounter Care Teams Socket Puller Relationship Specialty Start Date End Date Delphine Shaw MD [address] [place] [address] PCP - General 08/05/1997 documented as of this encounter
[2024-06-06 10:53] VITALS: BP 70/60; BP 94/60; PULSE 60; O2SAT 100; O2SAT 99
== END 2024-06-06 11:04 | disposition home or self-care (01) ==
PROVIDERS: PCP Internal Medicine; Visit Provider Psychiatry & Neurology Neurology
DX: G20.A1 Parkinson's disease without dyskinesia, without mention of fluctuations (principal); G47.33 Obstructive sleep apnea (adult) (pediatric); G90.3 Multi-system degeneration of the autonomic nervous system
CPT/HCPCS: 99214; G2211

== ENCOUNTER → 2024-06-06 09:44 | Outpatient (BNVA) | payer MEDICARE, OTHER, SELFPAY | PROVIDERS: PCP Internal Medicine; Visit Provider Psychiatry & Neurology Neurology | DX: G20.A1 Parkinson's disease without dyskinesia, without mention of fluctuations (principal); G90.3 Multi-system degeneration of the autonomic nervous system; G47.33 Obstructive sleep apnea (adult) (pediatric) | CPT/HCPCS: 99212 ==

== ENCOUNTER 2024-07-28 07:53 | Outpatient (AMB) | payer MEDICARE, OTHER, SELFPAY ==
[2024-07-28 07:55] VITALS: BP 100/69; PULSE 62; O2SAT 99; BMI 27.8
--- NOTE | 2024-07-28 07:55 | A.OFFVIS_ITS ---
Vital Signs 07/28/24 07:55 Height 6 ft 3 in Weight 222 lb 2 oz BMI 27.8 BP 100/69 Blood Pressure Location Rt brachial Position Sitting Pulse 62 Pulse Source Pulse Oximeter Pulse Oximetry (%) 99 Oxygen Delivery Method Room Air Intake Visit Reasons: 2 mnts f/u Intake Note: patient presents follow up Parkinson's/MARGI for new med trial droxidopa. Has not fell since last visit but still gets dizzy. at night he drools and bleeds. Allergies No Known Allergies Allergy (Verified 07/28/24 07:58) Medication List - Last Reconciled 07/28/24 by Yamilet Sierra MD aspirin 81 mg PO DAILY atorvastatin 20 mg PO DAILY carbidopa-levodopa 25-100 mg (Sinemet) 1 tab PO QID dapagliflozin propanediol 10 mg PO DAILY droxidopa 300 mg PO TID furosemide 20 mg PO DAILY nitroglycerin 0.4 mg sublingual Q5M PRN propranolol 40 mg PO ONCE rivaroxaban (Xarelto) 20 mg PO DAILY HPI Comments Details: 64y/o right handed male comes for follow up of parkinsons disease.( Multiple system atrophy)He did not start droxidopa - due to insurance issues. He received the authorization today and will miner pick prescription. He reports bleeidng from his mouth at night sometimes No falls since last visit but still has dizziness. He is on sinemet 25/100 qid - no difference in tremors ..He also feels when he is bending over or reaching up. He has REM behavioral disorder - sleep talking PSG showed mild MARGI AHI 7/hr O2 81 %- but patient declines CPAP MRI- showed an acute ischemia in the posterior limb of right IC .He is on Xarelto prescribed by hot wort settler Ca doppler was normal. History-He started noticing tremors in his right hand about 2 years ago. It was mild and intermittent initially. now it is more persistent. It is mostly a rest tremors. He has occasional right LE tremors as well.He has mild difficulty with right hand coordination. His speech is mildly softer. He has nighttime drooling. His handwriting is smaller and it is hard to write. No trouble with utensils. He has trouble putting his socks on but thinks its due to back and hip surgery.He has some trouble turning in bed. No trouble with showers. He has gait issues - both cardiac and hip, back pain. His balance is not good . No recent falls. He uses the railing when he is using stairs. He denies memory issues or word finding difficulty . He denies any abnormal behavior in sleep but has trouble getting comfortable in sleep.No mood issues He does not exercise because of dyspnea. He denies nausea, vomiting. He denies constipation. He has vertigo sometimes.no hallucinations.No exposure to chemicals, no head injury . No family h/o parkinsons. He has 2-3 alcoholic drinks a day ( titos seltzer water and cranberry) [facility] Medical History Orthostatic hypotension due to Parkinson disease Parkinson's disease without dyskinesia or fluctuating manifestations Obstructive sleep apnea CVA (cerebral vascular accident) Abnormal serum iron level Hyperlipidemia HTN (hypertension) CAD (coronary artery disease) Atrial fibrillation Hypersomnia Nocturia Loud snoring Disc degeneration, lumbar Surgical History Hx of heart artery stent History of hip replacement History of back surgery Family History Father Heart disease Mother Cancer Social History Alcohol intake: current Alcohol intake frequency: a few times a month Patient Tobacco Use Status: Never used Tobacco Physical Exam Vital Signs: Last Vital Signs Pulse 62 07/28/24 07:55 BP 100/69 07/28/24 07:55 Pulse Ox 99 07/28/24 07:55 Oxygen Delivery Method Room Air 07/28/24 07:55 BMI result Body Mass Index 27.8 Const General: cooperative, comfortable and no acute distress Nutritional Appearance: average body habitus Orientation/consciousness: patient oriented x3 HEENT Head: Yes normal to inspection Neck Other: antecollis, tilted to right restricted range of motion Neuro Other: Mild decreased blink and facial expression slow tongue movements Voice- hypophonia hoarse Right UE moderate amplitude rest tremors Fine Finger movements - mildly decreased cynthia R>L Alternating hand movements - decreased cynthia Hand movements - decreased cynthia Foot taps- decreased cynthia 2+ cog wheel rigidity right UE gait - stooped, mild slowness No arm swing on right, decreased on the left UE General: patient oriented x3 and moves all extremities Cranial nerves: Yes CN's II-XII intact bilaterally, Yes Bilaterally intact EOM present, Yes Normal facial strength present and Yes Midline tongue present Cognition (Neuro): normal cognition Motor exam (neuro): 5/5 motor strength present throughout Coordination: [id number] test normal Assessment & Plan Assessment & Plan (1) Parkinson's disease without dyskinesia or fluctuating manifestations: Code(s): G20.A1 - Parkinson's disease without dyskinesia, without mention of fluctuations Category: Medical (2) Obstructive sleep apnea: Comment: Mild AHI 7/hr and o2 ramo 81% Code(s): G47.33 - Obstructive sleep apnea (adult) (pediatric) Category: Medical (3) Orthostatic hypotension due to Parkinson disease: Code(s): G90.3 - Multi-system degeneration of the autonomic nervous system Category: Medical Plan Continue sinemet 25/100 qid [id number] -7pm - side effects discussed. Start droxidopa 300mg tid cardiology follow up( [facility] ) ( Dr.Brian Russ)- Call PCP and cardiology for delaney bleeding episodes- he is on xarelto and aspirin ( my office will notify ) Medications: Changed From droxidopa (Northera) give consistently with OR without food, upon rising, at midday, late PM/at least 3hrs before bedtime 200 mg PO TID 90 caps 6RF To droxidopa give consistently with OR without food, upon rising, at midday, late PM/at least 3hrs before bedtime 300 mg PO TID 90 caps 6RF Coding Level of Care Code Est Pt Level 4 (15727) Complex EM visit Add On G2211 Diagnoses Parkinson's disease without dyskinesia or fluctuating manifestations G20.A1 Obstructive sleep apnea G47.33 Orthostatic hypotension due to Parkinson disease G90.3
--- OUTSIDE RECORDS SUMMARY | 2024-07-28 07:58 | XMS_ITS | Clinical Summary ---
Author Organization [facility] Address [address] [place] [phone] Phone Care Team Providers Care Tile And Marble Installer Name Role Phone Delphine Shaw MD Primary Care Provider [phone] Allergies No known active allergies Medications atorvastatin (LIPITOR) 20 mg tablet Take 1 tablet (20 mg total) by mouth daily. Active carbidopa-levod opa (SINEMET) 25-100 mg per tablet Take by [...] (XARELTO) 20 mg tablet Take by mouth. Activ e cyanocobalamin (VITAMIN B-12) 250 mcg tablet Take 1 tablet (250 mcg total) by mouth 1 (one) time each day. Active dapagliflozin propanediol (FARXIGA) 10 mg tablet Take 1 tablet (10 mg total) by mouth 1 (one) time each day. Active trimethoprim-po lymyxin b (POLYTRIM) ophthalmic solution Administer 1 drop into both eyes 4 (four) times a day for 7 days. 10 mL 07/27/19 25 025 Active multivitamin (MULTIPLE VITAMINS ORAL) Take by mouth. 025 Discontinued apixaban (ELIQUIS) 5 mg tablet Take 1 tablet (5 mg total) by mouth every 12 (twelve) hours. 025 Discontinued lisinopriL (PRINIVIL,ZESTR IL) 5 mg tablet Take 1 tablet (5 mg total) by mouth daily. 025 Discontinued metoprolol tartrate (LOPRESSOR) 25 mg tablet Take 1 tablet (25 mg total) by mouth 2 (two) times a day. 025 Discontinued Active Problems Problem Noted Date Diagnosed Date Paroxysmal A-fib ([facility] [place]24, [facility] V28) 07/12 Assessment & Plan (07/26/2024 8:42 AM EDT): Hereditary hemochromatosis ([facility] V24) 022 DDD (degenerative disc disease), lumbar 02/06/20 21 Lumbar radiculopathy 02/05/2021 Encounters Date Type Department Care Team Description 07/26/2024 8:00 AM EDT Office Visit Adult Medicine [address] [phone] Glen Aguilar PA Ingrown nail (Primary Dx); Nail dystrophy; Riddle eye disease of both eyes; Dyspnea, unspecified type; Paroxysmal A-fib ([facility] V24, [facility] V28) 07/25/2024 Telephone Adult Medicine [address] [phone] Delphine Shaw MD Conjunctivitis 05/18/2024 Telephone Adult Medicine [address] [phone] Delphine Shaw MD Referral 05/18/2024 Telephone Adult Medicine [address] [phone] Delphine Shaw MD Referral - Lung Txp 05/12/2024 10:45 AM EST Office Visit [facility] Hematology Oncology [address] [place] [phone] Kyaw Gan MD Hereditary hemochromatosis ([facility] V24) (Primary Dx) from Last 3 Months Surgical History Surgery Date Site/Laterality Comments COLONOSCOPY 04/11/2008 PROCEDURE:COLONOSCOPY CORONARY ANGIOPLASTY WITH STENT PLACEMENT PROCEDURE:CORONARY ANGIOPLASTY WITH STENT PLACEMENT LUMBAR EPIDURAL INJECTION 02/05/2021 Right PROCEDURE:LUMBAR EPIDURAL INJECTION;COMMENT:Procedure: INJECTION ANESTHETIC AGENT LUMBAR; Surgeon: Bernice Schulz MD; [place] [facility]; Service: Rehab Medicine; Laterality: Right; COLONOSCOPY 04/11/08 PROCEDURE: HISTORICAL COLONOSCOPY; COMMENT: normal; repeat in ten years Medical History Medical History Date Comments Hemochromatosis DX:Hemochromatos is Hypertension DX:Hypertension Pure hypercholesterolemia DX:Pur e hypercholesterolemia Alcohol abuse DX:Alcohol abuse Coronary artery disease DX:Coron noemí artery disease Thrombocytopenia (CMS/HCC V24) D X:Thrombocytopenia (HCC) Myocardial infarction (CMS/H CC V24, CMS/[facility] V28) DX:Myocardial infarction (HC C) Coronary atherosclerosis of unspecified type of vessel, tonto apache or graft 10/10/2005 DX:Coronary atherosclerosis of unspecified type of vessel, tonto apache or graft; COMMENT: stent to 100% LAD 09/16 at [facility] Pure hypercholesterolemia 10/10/2005 DX:Pur e hypercholesterolemia [...] Sign Reading Time Taken Comments Blood Pressure 110/74 07/26/2024 8:05 AM EDT Pulse 58 07/26/2024 8:05 AM EDT Temperature 36.4 ??C (97.6 ??F) 07/26/2024 8:05 AM ED T Respiratory Rate 14 07/26/2024 8:05 AM EDT Oxygen Saturation 99% 07/26/2024 8:05 AM EDT Inhaled Oxygen Concentration - - Weight 100 kg (221 lb) 07/26/2024 8:05 AM EDT Height 190.5 cm (6' 3 ) 07/26/2024 8:05 AM EDT Body Mass Index 27.62 07/26/2024 8:05 AM EDT Plan of Treatment Upcoming Encounters Date Type Department Care Team (Late st Contact Info) Description 08/10/2024 10:45 AM EDT Office Visit [facility] Hematology Oncology [address] [place] [phone] Kyaw Gan MD [address] [place] [phone] 08/17/2024 4:00 PM EDT Consult Pulmonolgy - [place] [address] [phone] Alissa Sánchez MD [address] [address] 11/28/2024 9:30 AM EDT Office Visit Adult Medicine [facility] [address] [place] [address] Delphine Shaw MD [address] [place] [address] Health Maintenance Due Date Last Done Comments Hepatitis A Vaccines (1 of 2 - Risk 2-dose series) 1977 Pneumococcal Vaccine: 50+ Years (2 of 2 - PCV) 03/17/2007 03/17/2006 Zoster Vaccines (1 of 2) 02/25/2008 RSV Immunization Adult Patients (1 - Risk 60-74 years 1-dose series) [...] 04/05/2021, 05/25/2020, Additional history exists Influenza Vaccine (Season Ended) 2024 04/30/2022, 04/05/2021, 01/11/2010, Additional history exists Hypertension/CHF/CAD Annual [...] age to complete this topic Meningococcal B Vaccine Aged Out No l onger eligible based on patient's age to complete this topic RSV Immunization Patients Under 20 months Aged Out No longer eligible based on patient's age to complete this topic Varicella Vaccines Aged Out No longer eligible based on patient's age to complete this topic Procedures Procedure Name Priority Date/Time Associated Diagnosis Comments CBC WITH AUTO DIFFERENTIAL Routine 05/05/2024 11:55 AM EST Pigment cirrhosis (CMS/HCC V24) IRON AND TIBC Routine 05/05/2024 11:55 AM EST Pigment cirrhosis (CMS/HCC V24) CBC AND DIFFERENTIAL Routine 05/05/2024 11:55 AM EST Pigment cirrhosis (CMS/HCC V24) FERRITIN Routine 05/05/2024 11:55 AM EST Pigment cirrhosis (CMS/HCC V24) COMPREHENSIVE METABOLIC PANEL Routine 05/05/2024 11:55 AM EST Pigment cirrhosis (CMS/HCC V24) from Last 3 Months Results * (ABNORMAL) CBC auto differential (05/05/2024 11:55 AM EST) WBC 6.2 4.8 - 10.8 K/mcL LAB [...] [facility] Immature Granulocytes Absolute 0.02 0.00 - 0.03 K/mcL LAB HEMETOLOGY METHOD 05/05/2024 1:08 PM EST [facility] Blood Venous blood specimen / Unknown Venipuncture / Unknown 05/05/2024 11:55 AM EST 05/05/2024 12:51 PM EST Kyaw Gan MD LAB BLOOD ORDERABLES Final Result Performing Organization Address City/[facility]/ZIP Co de Phone Number [facility] [address] [place] [address], [place] [phone] * (ABNORMAL) Iron and TIBC (05/05/2024 11:55 AM EST) Iron 62 50 - 160 mcg/dL LAB CHEMISTRY METHOD 05/05/2024 1:49 PM [facility] TIBC 363 250 - 450 mcg/dL LAB CHEMISTRY METHOD 05/05/2024 1:49 PM [facility] Iron Saturation 17(L) 20 - 50 % LAB CHEMISTRY METHOD 05/05/2024 1:49 PM EST [facility] Blood Venous blood specimen / Unknown Venipuncture / Unknown 05/05/2024 11:55 AM EST 05/05/2024 12:51 PM EST Kyaw Gan MD LAB BLOOD ORDERABLES Final Result [facility] [address] [place] [address], [place] [phone] * (ABNORMAL) Ferritin (05/05/2024 11:55 AM EST) Ferritin 19(L) 26 - 388 ng/mL LAB CHEMISTRY METHOD 05/05/2024 1:49 PM EST [facility] Blood Venous blood specimen / Unknown Venipuncture / Unknown 05/05/2024 11:55 AM EST 05/05/2024 12:51 PM EST us Kyaw Gan MD LAB BLOOD ORDERABLES Final Result [facility] [address] [place] [address], * (ABNORMAL) Comprehensive metabolic panel (05/05/2024 11:55 [...] Gan MD LAB BLOOD ORDERABLES Final Result [facility] [address] [place] [address], from Last 3 Months Insurance [employer] MEDICARE Care Teams Tile And Marble Installer Relationship Specialty Start Date End Date Delphine Shaw MD [address] [facility] [place] [address] PCP - General 08/05/1997
--- OUTSIDE RECORDS SUMMARY | 2024-07-28 07:58 | XMS_ITS | Encounter Summary ---
Author Organization [facility] Address [address] [place] [address] Care Team Providers Care Evaporator Helper Name Role Phone Delphine Shaw MD Primary Care Provider [phone] Reason for Visit * Reason Onset Date Comments Conjunctivitis 07/25/2024 Encounter Details Date Type Department Care Team (Late st Contact Info) Description 07/25/2024 Telephone Adult Medicine [facility] [place] [address] [place] [address] Delphine Shaw MD [address] [place], [place] [phone] Conjunctivitis Social History Tobacco Use Types Packs/Day Years [...] Progress Notes * Mirta Mello RN - 07/25/2024 11:43 AM EDT Pt has had itching , drainage and swelling of his right eye for 2 days no known injury or FB Pt has n ot been ill, denies any ear pain or fever, no headache , has no facial swelling upper lid of right eye is puffy a outer canthus , has sticky drainage when he wakes up , no change in vision, Pt to see Tarsha marie tomorrow at 9;00 Advised home care following the eye problem Protocol. RN reinforced telephone consultation and advice. Reviewed with the patient the signs and symptoms to watch for that would require immediate attention. If symptoms change, worsen or increase in intensity, to call back immediately. * Tony Patria - 07/25/2024 9:53 AM EDT Patient call requires triage: Symptoms patient is presenting: Patient called stating that he has suspected pink eye , states thatit is worse in his right eye , would like to speak to nurse to get advice on what to do How long has patient had these symptoms?: 2 days For ALL patients calling to schedule any appointment (routine, sick visit, follow up, consult, etc.) in the outpatient setting please ask the following questions: Do you have fever of higher than 101, sore throat with difficulty swallowing or severe shortness ofbreath? no If YES to any of these above symptoms, send a message to triage and do not book. Red dot. If no, an audio or video visit should be booked. Have you had close contact with someone with Coronavirus in the last 14 days? no Have you traveled abroad? no Have you traveled recently to another state outside of [place], [place], [place], [place], [place], [place], [place]? no o If yes, did you quarantine for 14 days or have a negative covid test? no If yes to any of the above, patient is not to be scheduled in office until after 14 day quarantine or negative covid test. If pain or injury related was it due to an accident at work or from a motor vehicle accident? If yes, date of accident/Injury: No If yes, gather 3rd constitution party insurance information [employer] Alliance Party Information: not applicable PCP: Delphine Shaw MD Payor: [employer] / Plan[facility] GENERIC / Product Type: *No Product type*/ documented in this encounter Plan of Treatment Upcoming Encounters Date Type Department Care Team (Late st Contact Info) Description 08/10/2024 10:45 AM EDT Office Visit [facility] Hematology Oncology [address] [place] [phone] Kyaw Gan MD [address] [place] [phone] 08/17/2024 4:00 PM EDT Consult Pulmonolgy - [place] [address] [phone] Alissa Sánchez MD [address] [address] 11/28/2024 9:30 AM EDT Office Visit Adult Medicine [facility] [place] [address] [place] [phone] Delphine Shaw MD [address] [place] [address] documented as of this encounter Visit Diagnoses Not on filedocumented in this encounter Care Teams Evaporator Helper Relationship Specialty Start Date End Date Delphine Shaw MD [address] [place] [address] PCP - General 08/05/1997 documented as of this encounter
--- OUTSIDE RECORDS SUMMARY | 2024-07-28 07:58 | XMS_ITS | Encounter Summary ---
Author Organization [facility] Address [address] [place] [address] Care Team Providers Care Hull Builder Name Role Phone Delphine Shaw MD Primary Care Provider [phone] Encounter Details Date Type Department Care Team (Late Contact Info) Description 01/11/2024 10:45 AM EDT Hospital Encounter TH HISTORIC ENCOUNTERS EASTERN CONVERSION ONLY Kyaw Gan MD [address] [place] [address] Social History Tobacco Use Types [...] Description 08/10/2024 10:45 AM EDT Office Visit [facility] Hematology Oncology [address] [place] [address] Kyaw Gan MD [address] [place] [address] 08/17/2024 4:00 PM EDT Consult Pulmonolgy - [place] [address] [phone] Alissa Sánchez MD [address] [address] 11/28/2024 9:30 AM EDT Office Visit Adult Medicine [facility] [place] [address] [place] [address] Delphine Shaw MD [address] [place] [address] documented as of this encounter Visit Diagnoses Not on filedocumented in this encounter Care Teams Hull Builder Relationship Specialty Start Date End Date Delphine Shaw MD [address] [place] [address] PCP - General 08/05/1997 documented as of this encounter
--- OUTSIDE RECORDS SUMMARY | 2024-07-28 07:58 | XMS_ITS | Clinical Summary ---
Author Organization [facility] Address [address] [place] [address] Care Team Providers Care Publicity Consultant Name Role Phone Delphine Shaw MD Primary Care Provider [phone] Allergies No known active allergies Medications Medication [...] age to complete this topic Care Teams Publicity Consultant Relationship Specialty Start Date End Date Delphine Shaw MD PCP - General Internal Medicine 01/16/20
--- OUTSIDE RECORDS SUMMARY | 2024-07-28 07:58 | XMS_ITS | Encounter Summary ---
Author Organization [facility] Address [address] [place] [address] Care Team Providers Care Sales Representative Cash Registers Name Role Phone Delphine Shaw MD Primary Care Provider [phone] Reason for Referral * Consultation (Routine) - Authorized Specialty Diagnoses / Procedures Referred By Contac t Referred To Contact Pulmonary Disease / Pulmonology Diagnoses Dyspnea, unspecified type Glen Aguilar PA [address] [place] [address] Phone: tel: fax: Pulmon[address] [address] Phone: tel: fax: Referral ID Status Reason Start Date Expiration Date Visits Requested Visits Authorized [id number] Authorized Specialty Services Required 07/26/2024 07/26/2025 1 1 * Consultation (Routine) - Authorized Specialty Diagnoses / Procedures Referred By Contac t Referred To Contact Podiatry Diagnoses Ingrown nail Nail dystrophy Glen Aguilar PA [address] [place] [address] Phone: tel: fax: Referral ID Status Reason Start Date Expiration Date Visits Requested Visits Authorized [id number] Authorized Specialty Services Required 07/26/2024 07/26/2025 1 1 Reason for Visit * Reason Comments Conjunctivitis Itching,irritation s ome discharge of OD x 3 days ? [place] eye Encounter Details Date Type Department Care Team (Late st Contact Info) Description 07/26/2024 8:00 AM EDT Office Visit Adult Medicine [facility] [place] [address] [place] [address] Glen Aguilar PA [address] [place] [address] Ingrown nail (Primary Dx); Nail dystrophy; [place] eye disease of both eyes; Dyspnea, unspecified type; Paroxysmal A-fib ([facility] V24, [facility] V28) Social History Tobacco Use Types Packs/Day Years [...] Mass Index 27.62 07/26/2024 8:05 AM EDT documented in this encounter Ordered Prescriptions Prescription Sig Dispense Quantity Refills Last Filled Start Date End Date trimethoprim-polym yxin b (POLYTRIM) ophthalmic solution Administer 1 drop into both eyes 4 (four) times a day for 7 days. 10 mL 07/26/2024 documented in this encounter Progress Notes * SARA Sands - 07/26/2024 8:00 AM EDTAssociated Problem(s): Paroxysmal A-fib ([facility] V24, [facility] V28) * SARA Sands - 07/26/2024 8:00 AM EDT PATIENT'S PCP: Delphine Shaw MD LAST VISIT IN THIS DEPARTMENT: 07/25/2024 LAST VISIT WITH THIS PROVIDER: Visit date not found Keon Nichols is a 64 y.o. (: 1960) male who presents today for: Chief Complaint Patient presents with Conjunctivitis Itching,irritation some discharge of OD x 3 days ? [place] eye Assessment/Plan Assessment & Plan Ingrown nail Orders: Ambulatory referral to Podiatry; Future Nail dystrophy Orders: Ambulatory referral to Podiatry; Future [place] eye disease of both eyes Dyspnea, unspecified type Orders: Ambulatory referral to Pulmonology; Future Paroxysmal A-fib ([facility] V24, [facility] V28) 64 y/o M presents for acute visit for R pink eye. Most consistent with viral etiology, but with discharge and mild vision blurring which is progressing I decided to cover with polytrim. He asked me about a previous podiatry referral which has not been processed so will update that. He also mentioned he has been working with his screen printing cloth spreader for ongoing dyspnea, and was advised to consult with a marketing planning manager. An xray has been negative and an echo has been arranged. I placed the pulmonology referral for the pt. He had PFTs and pulm consult years ago which I reviewed. He never smoked. I do not have specific etiology but appreciate pulmonary comment. He was advised that he needs to see Dr. Shaw in 3 months. He continues on xarelto for a-fib. Sooner if any new or worsening symptoms. No follow-ups on file. Subjective 64 y/o M here for right eye irritation. Sxs present for 3 days, Now getting some symptoms in the left eye as well. Mild blurring in the right eye. No visual disturbance in the left eye. No event to suggest foreign body. No eye pain with movements. He also mentions chronic dyspnea and chronic foot issues. Conjunctivitis Pertinent negatives include no fever, no abdominal pain, no ear pain, no sore throat, no cough, no rash and no eye discharge. Review of Systems Constitutional: Negative for chills, diaphoresis and fever. HENT: Negative for ear pain and sore throat. Eyes: Negative for discharge. Respiratory: Negative for cough and shortness of breath. Cardiovascular: Negative for chest pain, palpitations and leg swelling. Gastrointestinal: Negative for abdominal pain. Endocrine: Negative for polyuria. Genitourinary: Negative for difficulty urinating. Musculoskeletal: Negative for gait problem. Skin: Negative for rash. Neurological: Negative for syncope and weakness. The following portions of the patient's chart were reviewed in this encounter and updated as appropriate: Tobacco Allergies Meds Problems Med Hx Surg Hx Fam Hx Objective Visit Vitals BP 110/74 Pulse 58 Temp 36.4 ??C (97.6 ??F) (Temporal) Resp 14 Ht 1.905 m (75 ) Wt 100 kg (221 lb) SpO2 99% BMI 27.62 kg/m?? Smoking Status Never BSA 2.29 m?? SpO2: 99 % BP Readings from Last 3 Encounters: 07/26/24 110/74 05/12/24 113/76 01/18/24 132/78 Wt Readings from Last 3 Encounters: 07/26/24 100 kg (221 lb) 05/12/24 99.3 kg (219 lb) 01/18/24 103 kg (227 lb) Physical Exam Constitutional: General: He is not in acute distress. Appearance: Normal appearance. He is not ill-appearing. Eyes: General: No scleral icterus. Right eye: No discharge. Left eye: No discharge. Extraocular Movements: Extraocular movements intact. Pupils: Pupils are equal, round, and reactive to light. Comments: Conjunctival injection R > L Cardiovascular: Rate and Rhythm: Normal rate and regular rhythm. Heart sounds: No murmur heard. Pulmonary: Effort: Pulmonary effort is normal. Breath sounds: Normal breath sounds. No wheezing, rhonchi or rales. Abdominal: General: Bowel sounds are normal. There is no distension. Palpations: Abdomen is soft. There is no mass. Hernia: No hernia is present. Musculoskeletal: General: Normal range of motion. Cervical back: Normal range of motion and neck supple. Right lower leg: No edema. Left lower leg: No edema. Skin: General: Skin is warm and dry. Capillary Refill: Capillary refill takes less than 2 seconds. Coloration: Skin is not jaundiced. Findings: No bruising, erythema or rash. Neurological: General: No focal deficit present. Mental Status: He is alert and oriented to person, place, and time. Mental status is at baseline. Psychiatric: Mood and Affect: Mood normal. Behavior: Behavior normal. Thought Content: Thought content normal. Judgment: Judgment normal. No Known Allergies Current Outpatient Medications Medication Instructions atorvastatin (LIPITOR) 20 mg tablet Take 1 tablet (20 mg total) by mouth daily. carbidopa-levodopa (SINEMET) 25-100 mg per tablet Take by mouth 3 (three) times a day. cyanocobalamin (VITAMIN B-12) 250 mcg, Daily dapagliflozin propanediol (FARXIGA) 10 mg, Daily furosemide (LASIX) 20 mg tablet Take 1 tablet (20 mg total) by mouth 2 (two) times a day. nitroglycerin (NITROSTAT) 0.[address] 1 tablet (0.4 mg total) under the tongue every 5 (five) minutes as needed for chest pain. propranolol LA (INDERAL LA) 120 mg 24 hr capsule Take 1 capsule (120 mg total) by mouth daily. rivaroxaban (XARELTO) 20 mg tablet Take by mouth. trimethoprim-polymyxin b (POLYTRIM) ophthalmic solution 1 drop, Both Eyes, 4 times daily IMAGING/LABORATORY: None SARA Sands [address] [address] documented in this encounter Plan of Treatment Upcoming Encounters Date Type Department Care Team (Late st Contact Info) Description 08/10/2024 10:45 AM EDT Office Visit [facility] Hematology Oncology [address] [place] [address] Kyaw Gan MD [address] [place] [phone] 08/17/2024 4:00 PM EDT Consult Pulmonolgy - [place] 175 [facility] [address] [place] [address] Alissa Sánchez MD [address] [address] 11/28/2024 9:30 AM EDT Office Visit Adult Medicine [facility] [place] [address] [place] [address] Delphine Shaw MD [address] [place] [address] Scheduled Referrals Name Type Priority Associated Diagnoses Order Schedule Ambulatory referral to Podiatry Outpatient Referral Routine Ingrown nail Nail dystrophy 1 Occurrences starting 07/26/2024 until 07/26/2025 Ambulatory referral to Pulmonology Outpatient Referral Routine Dyspnea, unspecified type 1 Occurrences starting 07/26/2024 until 07/26/2025 documented as of this encounter Visit Diagnoses Diagnosis Ingrown nail- Primary Ingrowing nail Nail dystrophy Other specified disease of nail [place] eye disease of both eyes Dyspnea, unspecified type Paroxysmal A-fib (CMS/HCC V24, CMS/HCC V28) documented in this encounter Discontinued Medications Medication Sig Discontinue Reason Start Date End Da te apixaban (ELIQUIS) 5 mg tablet Take 1 tablet (5 mg total) by mouth every 12 (twelve) hours. 07/26/2024 lisinopriL (PRINIVIL,ZESTRIL) 5 mg tablet Take 1 tablet (5 mg total) by mouth daily. 07/26/2024 metoprolol tartrate (LOPRESSOR) 25 mg tablet Take 1 tablet (25 mg total) by mouth 2 (two) times a day. 07/26/2024 multivitamin (MULTIPLE VITAMINS ORAL) Take by mouth. 07/26/2024 documented as of this encounter Historical Medications * This list may reflect changes made after this encounter. dapagliflozin propanediol (FARXIGA) 10 mg tablet Take 1 tablet (10 mg total) by mouth 1 (one) time each day. cyanocobalamin (VITAMIN B-12) 250 mcg tablet Take 1 tablet (250 mcg total) by mouth 1 (one) time each day. added in this encounter Care Teams Sales Representative Cash Registers Relationship Specialty Start Date End Date Delphine Shaw MD [address] [place] [address] PCP - General 08/05/1997 documented as of this encounter
== END 2024-07-28 08:20 | disposition home or self-care (01) ==
LOC: HO.HSMS 07:54
PROVIDERS: PCP Internal Medicine; Visit Provider Psychiatry & Neurology Neurology
DX: G20.A1 Parkinson's disease without dyskinesia, without mention of fluctuations (principal); G47.33 Obstructive sleep apnea (adult) (pediatric); G90.3 Multi-system degeneration of the autonomic nervous system
CPT/HCPCS: 99214; G2211

== ENCOUNTER → 2024-07-28 07:53 | Outpatient (BNVA) | payer MEDICARE, OTHER, SELFPAY | PROVIDERS: PCP Internal Medicine; Visit Provider Psychiatry & Neurology Neurology | DX: G20.A1 Parkinson's disease without dyskinesia, without mention of fluctuations (principal); G47.33 Obstructive sleep apnea (adult) (pediatric); G90.3 Multi-system degeneration of the autonomic nervous system | CPT/HCPCS: 99212 ==

== ENCOUNTER 2024-10-04 09:10 | Outpatient (AMB) | payer MEDICARE, OTHER, SELFPAY ==
--- OUTSIDE RECORDS SUMMARY | 2024-09-29 11:00 | XMS_ITS | Encounter Summary ---
Author Organization [employer] Address [address] [place] [address] Care Team Providers Care Inspector Glass Or Mirror Name Role Phone Delphine Shaw MD Primary Care Provider [phone] Encounter Details Date Type Department Care Team ([facility] st Contact Info) Description 09/29/2024 11:00 AM EDT Office Visit Pulmonolgy - [place] [address] [facility] [address] [place] [phone] Alissa Sánchez MD 175 [facility] [address] [place] [address] Chronic obstructive pulmonary disease, unspecified COPD type (CMS/HCC V24, CMS/HCC V28) (Primary Dx); Lung nodule; MARGI (obstructive sleep apnea) Social History Tobacco Use Types Packs/Day Years [...] Sign Reading Time Taken Comments Blood Pressure 134/75 09/29/2024 10:55 AM EDT Pulse 55 09/29/2024 10:55 AM EDT Temperature - - Respiratory Rate - - Oxygen Saturation 100% 09/29/2024 10:55 AM EDT Inhaled Oxygen Concentration - - Weight 103 kg (226 lb) 09/29/2024 10:55 AM EDT Height 190.5 cm (6' 3 ) 09/29/2024 10:55 AM EDT Body Mass Index 28.25 09/29/2024 10:55 AM EDT documented in this encounter Ordered Prescriptions Prescription Sig Dispense Quantity Refills Last Filled Start Date End Date albuterol HFA (PROAIR HFA ; PROVENTIL HFA ; VENTOLIN HFA) 90 mcg/actuation inhaler Inhale 2 puffs by mouth every 6 (six) hours if needed for wheezing or shortness of breath. 1 each 11 09/29/2024 documented in this encounter Progress Notes * Alissa Sánchez MD - 09/29/2024 11:00 AM EDT ADULT PULMONARY Followup CHIEF COMPLAINT : No chief complaint on file. Last seen 08/17/24 HISTORY OF PRESENT ILLNESS: Keon Nichols is a 64 y.o. old, male h/o COPD, MARGI (refused CPAP), CAD s/p CAD stent (2005), atrial fibrillation (on Xarelto declined Watchman procedure, HFpEF, HTN, HLD, hereditary hemochromatosis (C282Y w/ phlebotomy every 4 weeks), CKD 2, TIA/CVA, Parkinson disease (Sinemet w/ Droxidopa and already w/ orthostatic hypotension, REM behavior disorder). Over the last 5 years, patient has been experiencing increasing dyspnea and dyspnea on exertion. His CT chest on 05/22/2020 showed pericardial thickening, subpleural LLL 2 mm nodule, and patent centralairway. Since CT chest, patient had multiple chest x-ray which remain nondiagnostic echocardiogram on 11/07/2020 showed EF of 55 to 60%, no TR and no significant valvular abnormality. His exercise stress test was nondiagnostic and eventually a nuclear stress test was performed. His nuclear stress test at [facility] on 09/28/2023 show small area of myocardial ischemia in LAD. Patient is frustrated with hisprogressing dyspnea and dyspnea exertion, and currently refer for potential pulmonary causes. COVID vaccinations: Moderna . None Smoker. Moderate 2nd hand smoke exposure. No inhaled marijuana or recreational drug use. 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 Moderate occupation chemical or fume exposure. No tuberculosis or asbestos exposure. Pets: None . FH: Mother w/ lung cancer was a chain smoker . Since last seen: - Chest CT 08/23/2024 show RUL 4 mm nodule, no evidence of ILD, no pleural effusion, and no gross mediastinal hilar adenopathy. - Underwent PFT on 08/29/2024 which showed mild obstruction FEV1/FVC 82%. TLC 101%. RV/TLC 138%. DLCO 99%. NIOX was 17 ppb. - No hospitalized: REVIEW OF SYSTEMS: Review of Systems Constitutional: Negative for chills, decreased appetite, diaphoresis, fever, malaise/fatigue and night sweats. HENT: Negative for congestion. Cardiovascular: Positive for dyspnea on exertion. Negative for chest pain, irregular heartbeat and leg swelling. Respiratory: Negative for cough, hemoptysis, shortness of breath, snoring, sputum production and wheezing. Endocrine: Negative for cold intolerance and heat intolerance. Skin: Negative for rash. Gastrointestinal: Negative for abdominal pain, constipation, diarrhea and dysphagia. Genitourinary: Negative for dysuria. ALLERGIES: No Known Allergies ACTIVE MEDICATIONS: Outpatient Medications Marked as Taking for the 09/29/24 encounter (Office Visit) with Alissa Sánchez MD Medication Sig Dispense Refill atorvastatin (LIPITOR) 20 mg tablet Take 1 tablet (20 mg total) by mouth daily. B complex tablet Take 1 tablet by mouth 1 (one) time each day. carbidopa-levodopa (SINEMET) 25-100 mg per tablet Take by mouth 3 (three) times a day. cyanocobalamin (VITAMIN B-12) 250 mcg tablet Take 1 tablet (250 mcg total) by mouth 1 (one) time each day. dapagliflozin propanediol (FARXIGA) 10 mg tablet Take 1 tablet (10 mg total) by mouth 1 (one) time each day. droxidopa 300 mg capsule furosemide (LASIX) 20 mg tablet Take 1 [...] (XARELTO) 20 mg tablet Take by mouth. PROVIDER ATTESTS THAT THE MEDICATION LIST WAS OBTAINED, REVIEWED AND UPDATED. PAST MEDICAL HISTORY: Patient Active Problem List Diagnosis Date Noted Dizziness 07/28/2024 MARGI (obstructive sleep apnea) 07/28/2024 History of CVA (cerebrovascular accident) 07/28/2024 Parkinson's disease without fluctuating manifestations ([facility] V24, [facility] V28) 07/28/2024 Paroxysmal A-fib ([facility] V24, [facility] V28) 07/26/2024 Hereditary hemochromatosis ([facility] V24) 09/09/2021 DDD (degenerative disc disease), lumbar 02/05/2021 Lumbar radiculopathy 02/05/2021 Past Surgical History: Procedure Laterality Date COLONOSCOPY 04/11/2008 PROCEDURE:COLONOSCOPY COLONOSCOPY 04/11/08 PROCEDURE: HISTORICAL COLONOSCOPY; COMMENT: normal; repeat in ten years CORONARY ANGIOPLASTY WITH STENT PLACEMENT PROCEDURE:CORONARY ANGIOPLASTY WITH STENT PLACEMENT LUMBAR EPIDURAL INJECTION Right 02/05/2021 PROCEDURE:LUMBAR EPIDURAL INJECTION;COMMENT:Procedure: INJECTION ANESTHETIC AGENT LUMBAR; Surgeon: Bernice Schulz MD; Location: [facility]; Service: Rehab Medicine; Laterality: Right; Past Surgical History: Procedure Laterality Date COLONOSCOPY 04/11/2008 PROCEDURE:COLONOSCOPY COLONOSCOPY 04/11/08 PROCEDURE: HISTORICAL COLONOSCOPY; COMMENT: normal; repeat in ten years CORONARY ANGIOPLASTY WITH STENT PLACEMENT PROCEDURE:CORONARY ANGIOPLASTY WITH STENT PLACEMENT LUMBAR EPIDURAL INJECTION Right 02/05/2021 PROCEDURE:LUMBAR EPIDURAL INJECTION;COMMENT:Procedure: INJECTION ANESTHETIC AGENT LUMBAR; Surgeon: Bernice Schulz MD; Location: [facility]; Service: Rehab Medicine; Laterality: Right; FAMILY HISTORY: Family History Problem Relation Name Age of Onset Cancer Mother Heart attack Paternal Grandfather age 60 Heart attack Father age 50 Dementia Father Lung cancer Mother No Known Problems Brother No Known Problems Sister SOCIAL HISTORY Social History Socioeconomic History Marital status: Spouse name: Not on file Number of children: Not on file Years of education: Not on file Highest education level: Not on file Occupational History Not on file Tobacco Use Smoking status: Never Smokeless tobacco: Never Substance and Sexual Activity Alcohol use: No Drug use: No Sexual activity: Not on file Comment: lives with Other Topics Concern Not on file Social History Narrative Not on file IMMUNIZATION: Immunization History Administered Date(s) Administered Moderna (age 6mo & older) Bivalent, COVID-19, 0.5 mL or 0.25 mL dosage 04/30/2022 Moderna SARS-CoV-2 COVID-19, mRNA, LNP-S, preservative free 04/25/2020, 05/25/2020, 04/05/2021 PHYSICAL EXAM: Visit Vitals Ht 1.905 m (75 ) Wt 103 kg (226 lb) BMI 28.25 kg/m?? Smoking Status Never BSA 2.32 m?? Physical Exam Constitutional: Appearance: Normal appearance. HENT: Head: Normocephalic and atraumatic. Nose: No congestion. Eyes: Pupils: Pupils are equal, round, and reactive to light. Cardiovascular: Rate and Rhythm: Normal rate and regular rhythm. Heart sounds: No murmur heard. Pulmonary: Effort: No respiratory distress. Breath sounds: No stridor. No wheezing, rhonchi or rales. Comments: Slight diminished breath sound Abdominal: General: Bowel sounds are normal. There is no distension. Palpations: Abdomen is soft. Tenderness: There is no abdominal tenderness. Musculoskeletal: Right lower leg: No edema. Left lower leg: No edema. Neurological: Mental Status: He is alert. Diagnostic: CURRENTS ICD-10 PULMONARY DIAGNOSIS 1. Chronic obstructive pulmonary disease, unspecified COPD type (CMS/HCC V24, CMS/HCC V28) 2. Lung nodule 3. MARGI (obstructive sleep apnea) ASSESSMENT/PLAN: 1. COPD, mild. -Pathophysiology of COPD was discussed. Treatment options of the various inhalers, along with techniques of use, and side effects were discussed. Maintenance of care of obstructive lung disease health such as various vaccinations, smoking cessation & avoidance of chemicals/fumes/inhalants were d iscussed. All questions were answered. - Reviewed and discussed PFT & Niox performed on 08/29/2024. - Reviewed and discussed 6 minute walk performed on 08/29/2024, does not qualify for oxygen.. - Initiate albuterol MDI, 2 puffs every 6 as needed. 2. RUL 4 mm lung nodule in a non-smoker. - Reviewed and discussed 08/23/2024 CT chest finding. - Pathophysiology, differential diagnosis, clinical progression, and diagnostic options regarding lung nodule were discussed. All question answered. - Based on Fleischner criteria, no indication for follow-up CAT scan of the chest. - Chest x-ray prior to next visit. 3. MARGI, & parasomnia. -Pathophysiology, diagnostic, and various treatment options regarding sleep apnea (MARGI/CSA/mixed apnea/OHS) were discussed. Risks and benefits of CPAP/Bipap/iVaps use, along with risks of nontreatment were discussed. Patient agreed not to drive or operate heavy machinery if he/she should feel sleepy. 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 -Patient had declined CPAP in the past, and continue to decline. -I recommend patient to return to [facility] for sleep physician for follow-up and intervention. Patient wish to be seen by 1 year. -Follow up with Delphine Shaw MD for the other co-morbilities. RETURN TO THE NEXT VISIT: Based on physical exam, symptomatology, tests requested and baseline pulmonary evaluation/disease, I instructed the patient to come back to see me in 1 year for reevaluation after the test has been done or earlier if the patient needed. Thanks Delphine Shaw MD for allowing me to have the opportunity to assist in the care of this patient. This chart was generated by the [employer] system and [employer] speech recognition software and may contain inherent errors or omissions not intended by the user. Grammatical errors, random word insertions, deletions, pronoun errors and incomplete sentences are occasional consequences of this technologydue to software limitations. Not all errors are caught or corrected. If there are questions or concerns about the content of this note or information contained within the body of this dictation they should be addressed directly with the author for clarification. @[email or web address]@ documented in this encounter Plan of Treatment Upcoming Encounters Date Type Department Care Team (Late st Contact Info) Description 11/07/2024 9:30 AM EDT Office Visit [facility] Hematology Oncology [address] [place] [address] Kyaw Gan MD [address] [place] [address] 11/16/2024 10:45 AM EDT Office Visit Orthopedic Surgery - [place] [address] [facility] [address] [place] [phone] Raphael Vigil DPM 175 [facility] [address] [place] [address] 11/28/2024 9:30 AM EDT Office Visit Adult Medicine [facility] [address] [place] [address] Delphine Shaw MD [address] [place] [address] 09/29/2025 10:00 AM EDT [facility] [address] [facility] [address] [place] [address] Alissa Sánchez MD 175 [facility] [address] [place] [address] Scheduled Orders Name Type Priority Associated Diagnoses Orde r Schedule XR Chest 2 Views Imaging Routine Lung nodule Expected: 09/11/2025, Expires: 09/29/2025 documented as of this encounter Visit Diagnoses Diagnosis Chronic obstructive pulmonary disease, unspecified COPD type ([facility] V24, [facility] V28)- Primary Lung nodule Other diseases of lung, not elsewhere classified MARGI (obstructive sleep apnea) Obstructive sleep apnea (adult) (pediatric) documented in this encounter Care Teams Inspector Glass Or Mirror Relationship Specialty Start Date End Date Delphine Shaw MD [address] [place] [id number] PCP - General 08/05/1997 documented as of this encounter
[2024-10-04 09:12] VITALS: BP 126/72; PULSE 72; O2SAT 98; BMI 27.9
--- NOTE | 2024-10-04 09:12 | MHC.OFFVIS ---
Vital Signs 10/04/24 09:12 Height 6 ft 3 in Weight 223 lb BMI 27.9 BP 126/72 Blood Pressure Location Rt brachial Position Sitting Pulse 72 Pulse Source Pulse Oximeter Pulse Oximetry (%) 98 Oxygen Delivery Method Room Air Intake Visit Reasons: 2 months/ ok per MD Intake Note: Patient presents for med adjustment Droxidopa. nurse reached out to PCP regarding DELANEY bleeding see workload Allergies No Known Allergies Allergy (Verified 07/28/24 07:58) Medication List - Last Reconciled 10/04/24 by Yamilet Sierra MD albuterol sulfate 90 mcg/actuation (Ventolin HFA) 1 inh inhalation QID aspirin 81 mg PO DAILY atorvastatin 20 mg PO DAILY carbidopa-levodopa 25-100 mg (Sinemet) 1 tab PO QID dapagliflozin propanediol 10 mg PO DAILY droxidopa 2 caps qam 1 cap q noon and 1 cap q poncho orally 3 times a day; give consistently with OR without food, upon rising, at midday, late PM/at least 3hrs before bedtime furosemide 20 mg PO DAILY nitroglycerin 0.4 mg sublingual Q5M PRN propranolol 40 mg PO ONCE rivaroxaban (Xarelto) 20 mg PO DAILY HPI Comments Details: 64y/o right handed male comes for follow up of parkinsons disease.He had 2 falls since last visit preceded by lightheadedness. he was carrying his laundry up the stairs and felt dizzy and fell. (Multiple system atrophy)He is on droxidopa 300mg tid. He is on sinemet 25/100 qid He has REM behavioral disorder - sleep talking PSG showed mild MARGI AHI 7/hr O2 81 %- but patient declines CPAP MRI- showed an acute ischemia in the posterior limb of right IC .He is on Xarelto prescribed by dry mixer Ca doppler was normal. He has nighttime drooling which wakes him up. History-He started noticing tremors in his right hand about 2 years ago. It was mild and intermittent initially. now it is more persistent. It is mostly a rest tremors. He has occasional right LE tremors as well.He has mild difficulty with right hand coordination. His speech is mildly softer. He has nighttime drooling. His handwriting is smaller and it is hard to write. No trouble with utensils. He has trouble putting his socks on but thinks its due to back and hip surgery.He has some trouble turning in bed. No trouble with showers. He has gait issues - both cardiac and hip, back pain. His balance is not good . No recent falls. He uses the railing when he is using stairs. He denies memory issues or word finding difficulty . He denies any abnormal behavior in sleep but has trouble getting comfortable in sleep.No mood issues He does not exercise because of dyspnea. He denies nausea, vomiting. He denies constipation. He has vertigo sometimes.no hallucinations.No exposure to chemicals, no head injury . No family h/o parkinsons. He has 2-3 alcoholic drinks a day ( titos seltzer water and cranberry) [facility] Medical History Orthostatic hypotension due to Parkinson disease Parkinson's disease without dyskinesia or fluctuating manifestations Obstructive sleep apnea CVA (cerebral vascular accident) Abnormal serum iron level Hyperlipidemia HTN (hypertension) CAD (coronary artery disease) Atrial fibrillation Hypersomnia Nocturia Loud snoring Disc degeneration, lumbar Surgical History Hx of heart artery stent History of hip replacement History of back surgery Family History Father Heart disease Mother Cancer Social History Alcohol intake: current Alcohol intake frequency: a few times a month Patient Tobacco Use Status: Never used Tobacco Physical Exam Vital Signs: Last Vital Signs Pulse 72 10/04/24 09:12 BP 126/72 10/04/24 09:12 Pulse Ox 98 10/04/24 09:12 Oxygen Delivery Method Room Air 10/04/24 09:12 BMI result Body Mass Index 27.9 Const General: cooperative, comfortable and no acute distress Nutritional Appearance: average body habitus Orientation/consciousness: patient oriented x3 HEENT Head: Yes normal to inspection Neck Other: antecollis, tilted to right restricted range of motion Neuro Other: Mild decreased blink and facial expression slow tongue movements Voice- hypophonia hoarse Right UE moderate amplitude rest tremors Fine Finger movements - mildly decreased cynthia R>L Alternating hand movements - decreased cynthia Hand movements - decreased cynthia Foot taps- decreased cynthia 2+ cog wheel rigidity right UE gait - stooped, mild slowness No arm swing on right, decreased on the left UE General: patient oriented x3 and moves all extremities Cranial nerves: Yes CN's II-XII intact bilaterally, Yes Bilaterally intact EOM present, Yes Normal facial strength present and Yes Midline tongue present Cognition (Neuro): normal cognition Motor exam (neuro): 5/5 motor strength present throughout Coordination: [id number] test normal Assessment & Plan Assessment & Plan (1) Parkinson's disease without dyskinesia or fluctuating manifestations: Code(s): G20.A1 - Parkinson's disease without dyskinesia, without mention of fluctuations Category: Medical (2) Obstructive sleep apnea: Comment: Mild AHI 7/hr and o2 ramo 81% Code(s): G47.33 - Obstructive sleep apnea (adult) (pediatric) Category: Medical (3) Orthostatic hypotension due to Parkinson disease: Code(s): G90.3 - Multi-system degeneration of the autonomic nervous system Category: Medical Plan Continue sinemet 25/100 qid [id number] -7pm - side effects discussed. Increase droxidopa 300mg 2 tabs qam-1 tab - 1tab cardiology follow up( [facility] ) ( Dr.Brian Russ)- Call PCP and cardiology for delaney bleeding episodes- he is on xarelto and aspirin ( my office will notify ) Medications: Changed From droxidopa give consistently with OR without food, upon rising, at midday, late PM/at least 3hrs before bedtime 300 mg PO TID 90 caps 6RF To droxidopa 2 caps qam 1 cap q noon and 1 cap q poncho orally 3 times a day; give consistently with OR without food, upon rising, at midday, late PM/at least 3hrs before bedtime 120 caps 6RF Coding Level of Care Code Est Pt Level 4 (82461) Complex EM visit Add On G2211 Diagnoses Parkinson's disease without dyskinesia or fluctuating manifestations G20.A1 Obstructive sleep apnea G47.33 Orthostatic hypotension due to Parkinson disease G90.3
== END 2024-10-04 09:44 | disposition home or self-care (01) ==
LOC: HO.HSMS 09:11
PROVIDERS: PCP Internal Medicine; Visit Provider Psychiatry & Neurology Neurology
DX: G20.A1 Parkinson's disease without dyskinesia, without mention of fluctuations (principal); G47.33 Obstructive sleep apnea (adult) (pediatric); G90.3 Multi-system degeneration of the autonomic nervous system
CPT/HCPCS: 99214; G2211

== ENCOUNTER → 2024-10-04 09:10 | Outpatient (BNVA) | payer MEDICARE, OTHER, SELFPAY | PROVIDERS: PCP Internal Medicine; Visit Provider Psychiatry & Neurology Neurology | DX: G20.A1 Parkinson's disease without dyskinesia, without mention of fluctuations (principal); G47.33 Obstructive sleep apnea (adult) (pediatric); G90.3 Multi-system degeneration of the autonomic nervous system | CPT/HCPCS: 99212 ==

== ENCOUNTER 2025-02-08 10:45 | Outpatient (AMB) | payer MEDICARE, OTHER, SELFPAY ==
--- OUTSIDE RECORDS SUMMARY | 2024-01-11 10:45 | XMS_ITS | Encounter Summary ---
Author Organization [facility] Address [address] [place] [address] Care Team Providers Care Svp Chief Marketing Officer Name Role Phone Delphine Shaw MD Primary Care Provider [phone] Encounter Details Date Type Department Care Team (Late Contact Info) Description 01/11/2024 10:45 AM EDT Hospital Encounter TH HISTORIC ENCOUNTERS EASTERN CONVERSION ONLY Kyaw Gan MD [address] [place] [address] Social History Tobacco Use Types Packs/Day Years Used Date Smoking Tobacco: Never Smokeless Tobacco: Never Alcohol Use Standard Drinks/Week Comments No 0 (1 standard drink = 0.6 oz pur e alcohol) Sex and Gender Information Value Date Recorded Sex Assigned at Not on file Legal Sex Male 2:01 AM EST Gender Identity Not on file Sexual Orientation Not on file documented as of this encounter Plan of Treatment Upcoming Encounters Date Type Department Care Team (Late Contact Info) Description 02/16/2025 10:15 AM EST Office Visit Adult Medicine [address] [phone] Lynsey Abel NP [address] [place], [place] 03/23/2025 10:45 AM EST Office Visit Orthopedic Surgery [facility] [address] [place] [phone] Raphael Vigil DPM [address] [place] [phone] 05/10/2025 10:00 AM EST Office Visit [facility] Hematology Oncology [address] [place] [phone] Kyaw Gan MD [address] [place] [address] 09/29/2025 10:00 AM EDT Office Visit Pulmonology [facility] 175 [facility] [address] [place] [phone] Alissa Sánchez MD [address] [place] [phone] documented as of this encounter Visit Diagnoses Not on filedocumented in this encounter Care Teams Svp Chief Marketing Officer Relationship Specialty Start Date End Date Delphine Shaw MD [address] [place] [id number] PCP - General 08/05/1997 documented as of this encounter
--- OUTSIDE RECORDS SUMMARY | 2025-02-07 09:45 | XMS_ITS | Encounter Summary ---
Author Organization [facility] Address [address] [place] [address] Care Team Providers Care Waiter/Waitress Cafeteria Name Role Phone Delphine Shaw MD Primary Care Provider [phone] Reason for Visit * Reason Comments Follow-up Encounter Details Date Type Department Care Team (Latest Contact Info) Description 02/07/2025 9:45 AM EDT Office Visit [facility] Hematology Oncology [address] [place] [phone] Kyaw Gan MD [address] [place] [phone] Hereditary hemochromatosis (CMS/HCC V24) (Primary Dx) Social History Tobacco Use Types [...] Sign Reading Time Taken Comments Blood Pressure 151/88 02/07/2025 9:38 AM EDT Pulse 50 02/07/2025 9:38 AM EDT Temperature 36.7 C (98.1 F) 02/07/2025 9:38 AM EDT Respiratory Rate - - Oxygen Saturation 98% 02/07/2025 9:38 AM EDT Inhaled Oxygen Concentration - - Weight 103 kg (227 lb) 02/07/2025 9:38 AM EDT Height - - Body Mass Index 28.37 11/28/2024 9:35 AM EDT documented in this encounter Progress Notes * Kyaw Gan MD - 02/07/2025 9:45 AM EDT Diagnosis/treatment: Hereditary hemochromatosis with C282Y homozygosity. The [...] regimen every 2 weeks since 07/2020 at [facility]. He toleratesphlebotomies reasonably well. He reports mild fatigue of the days following phlebotomies. A CBC on 05/23/2020 showed WBC 4.5, hemoglobin 13.8 with MCV 100, platelet 133,000. A review of [facility] laboratory data is as below: A ferritin [...] A ferritin was 19. A creatinine was 1.5. LFTs were normal. A CBC on 08/02/2024 showed WBC 5.6, hemoglobin 13.5 with MCV 92, and platelet count 153,000. A percent transferrin saturation was 16. A ferritin was 14. A creatinine was 1.2. LFTs were normal. A CBC on 11/02/2024 showed WBC 4.9, hemoglobin 13.2 with MCV 92, and platelet count 118,000. A percent transferrin saturation was 26. A ferritin was 20. A creatinine was 1.2. LFTs were normal. A CBC on 02/02/2025 showed WBC 5.1, hemoglobin 15.5 with MCV 98, and platelet count 119,000. Percent transferrin saturation 49. A ferritin was 29. A creatinine was 1.0. LFTs were normal apart from a mild elevation in total bilirubin to 1.5. Several phlebotomies were held in 2022 and 2023 due to a low hemoglobin. He reports frequent dizziness and occasional syncopal episodes since early 2023, likely due to hypotension. He is followed by a Pit [employer]. We have continued to hold phlebotomies due to the dizziness and syncope. He was diagnosed with Parkinson's disease. He [...] underwent a right hip replacement 06/20/2022. He had been receiving phlebotomies every 2 weeks and then every 4 weeks. Several phlebotomies were held in 2022 and 2023 due to a low hemoglobin. He reports frequent dizziness and occasional syncopal episodes since early 2023, likely due to hypotension. He is followed by a Pit Boss. We have continued to hold phlebotomies as the percent transferrin saturation and ferritin remain inthe normal range so as not to exacerbate the dizziness and syncope. We will monitor CBCs, LFTs, and iron studies. Visit summary: The patient is a 64-year-old gentleman with hereditary hemochromatosis who was previously managed on a phlebotomy regimen. The ferritin has remained below the target of 50. He previously tolerated phlebotomies well. He reports frequent dizziness and occasional syncopal episodes since early 2023, likely due to hypotension. Is followed by his career advisor. Will continue to hold phlebotomies so as not to exacerbate the dizziness and syncope as long as the percent transferrin saturation and ferritin remain in the normal range. This encounter is of moderate risk. The patient has a hereditary hemochromatosis, which is life-threatening condition. He recently has been treated with phlebotomies. documented in this encounter Plan of Treatment Upcoming Encounters Date Type Department Care Team (Late st Contact Info) Description 02/16/2025 10:15 AM EST Office Visit Adult Medicine [facility] [address], [place] [phone] Lynsey Abel NP [address], [place] 03/23/2025 10:45 AM EST Office Visit Orthopedic Surgery [facility] [address] [facility] [address] [place] [phone] Raphael Vigil, ANTHONY [address] [place] [phone] 05/10/2025 10:00 AM EST Office Visit [facility] Hematology Oncology [address] [place] [phone] Kyaw Gan MD [address] [place] [phone] 09/29/2025 10:00 AM EDT Office Visit Pulmonology [facility] [address] [facility] [address] [place] [phone] Alissa Sánchez MD [address] [place] [phone] documented as of this encounter Visit Diagnoses Diagnosis Hereditary hemochromatosis (CMS/HCC V24)- Primary Hereditary hemochromatosis documented in this encounter Care Teams Waiter/Waitress Cafeteria Relationship Specialty Start Date End Date Delphine Shaw MD [address] [place] [address] PCP - General 08/05/1997 documented as of this encounter
--- NOTE | 2025-02-08 10:48 | MHC.OFFVIS ---
Vital Signs 02/08/25 10:49 Height 6 ft 3 in Weight 230 lb 2 oz BMI 28.8 BP 132/90 H Blood Pressure Location Rt brachial Position Sitting Pulse 66 Pulse Source Pulse Oximeter Pulse Oximetry (%) 98 Oxygen Delivery Method Room Air Intake Visit Reasons: 4 mnts f/u Intake Note: Follow up orthostatic hypotension due to Parkinson's disease without dyskinesia or fluctuating manifestations, [facility] Boss Required: No Accompanied by: Self / Same As Patient Allergies No Known Allergies Allergy (Verified 02/08/25 10:48) HPI Comments Details: 64y/o right handed male comes for follow up of parkinsons disease.No falls since last visit in October when his droxidopa was increase dto 600-300-300. He is on sinemet 25/100 qid He saw director of security- monitor showed atrial fib and waiting for other results. He has excessive fatigue and is unable to walk up and down driveway History from last visit-10/2024 PSG showed mild MARGI AHI 7/hr O2 81 %- but patient declines CPAP MRI- showed an acute ischemia in the posterior limb of right IC .He is on Xarelto prescribed by director of security Ca doppler was normal. He has nighttime drooling which wakes him up. -He started noticing tremors in his right hand about 2 years ago. It was mild and intermittent initially. now it is more persistent. It is mostly a rest tremors. He has occasional right LE tremors as well.He has mild difficulty with right hand coordination. His speech is mildly softer. He has nighttime drooling. His handwriting is smaller and it is hard to write. No trouble with utensils. He has trouble putting his socks on but thinks its due to back and hip surgery.He has some trouble turning in bed. No trouble with showers. He has gait issues - both cardiac and hip, back pain. His balance is not good . No recent falls. He uses the railing when he is using stairs. He denies memory issues or word finding difficulty . He denies any abnormal behavior in sleep but has trouble getting comfortable in sleep.No mood issues He does not exercise because of dyspnea. He denies nausea, vomiting. He denies constipation. He has vertigo sometimes.no hallucinations.No exposure to chemicals, no head injury . No family h/o parkinsons. He has 2-3 alcoholic drinks a day ( titos seltzer water and cranberry) [facility] Medical History Orthostatic hypotension due to Parkinson disease Parkinson's disease without dyskinesia or fluctuating manifestations Obstructive sleep apnea CVA (cerebral vascular accident) Abnormal serum iron level Hyperlipidemia HTN (hypertension) CAD (coronary artery disease) Atrial fibrillation Hypersomnia Nocturia Loud snoring Disc degeneration, lumbar Surgical History Hx of heart artery stent History of hip replacement History of back surgery Family History Father Heart disease Mother Cancer Social History Alcohol intake: current Alcohol intake frequency: a few times a month Patient Tobacco Use Status: Never used Tobacco Physical Exam Vital Signs: Last Vital Signs Pulse 66 02/08/25 10:49 BP 132/90 H 02/08/25 10:49 Pulse Ox 98 02/08/25 10:49 Oxygen Delivery Method Room Air 02/08/25 10:49 BMI result Body Mass Index 28.8 Const General: cooperative, comfortable and no acute distress Nutritional Appearance: average body habitus Orientation/consciousness: patient oriented x3 HEENT Head: Yes normal to inspection Neck Other: antecollis, tilted to right restricted range of motion Neuro Other: Mild decreased blink and facial expression slow tongue movements Voice- hypophonia hoarse Right UE moderate amplitude rest tremors Fine Finger movements - mildly decreased cynthia R>L Alternating hand movements - decreased cynthia Hand movements - decreased cynthia Foot taps- decreased cynthia 2+ cog wheel rigidity right UE gait - stooped, mild slowness No arm swing on right, decreased on the left UE General: patient oriented x3 and moves all extremities Cranial nerves: Yes CN's II-XII intact bilaterally, Yes Bilaterally intact EOM present, Yes Normal facial strength present and Yes Midline tongue present Cognition (Neuro): normal cognition Motor exam (neuro): 5/5 motor strength present throughout Coordination: [id number] test normal Assessment & Plan Assessment & Plan (1) Parkinson's disease without dyskinesia or fluctuating manifestations: Code(s): G20.A1 - Parkinson's disease without dyskinesia, without mention of fluctuations Category: Medical (2) Obstructive sleep apnea: Comment: Mild AHI 7/hr and o2 ramo 81% Code(s): G47.33 - Obstructive sleep apnea (adult) (pediatric) Category: Medical (3) Orthostatic hypotension due to Parkinson disease: Code(s): G90.3 - Multi-system degeneration of the autonomic nervous system Category: Medical Plan Continue sinemet 25/100 qid [id number] -7pm - side effects discussed. droxidopa 300mg 2 tabs qam-1 tab - 1tab cardiology follow up( [facility] ) ( Dr.Brian Russ)- he stopped baby aspirin and that has stopped his oral bleeding Coding Level of Care Code Est Pt Level 4 (12820) Complex EM visit Add On G2211 Diagnoses Parkinson's disease without dyskinesia or fluctuating manifestations G20.A1 Obstructive sleep apnea G47.33 Orthostatic hypotension due to Parkinson disease G90.3
[2025-02-08 10:49] VITALS: BP 132/90; PULSE 66; O2SAT 98; BMI 28.8
--- OUTSIDE RECORDS SUMMARY | 2025-02-08 13:28 | XMS_ITS | Clinical Summary ---
Author Organization [facility] [place] [address] Phone Care Team Providers Care Consumer Lender Name Role Phone Delphine Shaw MD Primary Care Provider [phone] Allergies No known active allergies Medications atorvastatin (LIPITOR) 20 mg tablet Take 1 tablet (20 mg total) by mouth daily. Active carbidopa-levodo pa (SINEMET) 25-100 mg per tablet Take by mouth 3 (three) times a day. Active furosemide (LASIX) 20 mg tablet Take 1 tablet (20 mg total) by mouth 2 (two) times a day. Active nitroglycerin (NITROSTAT) 0.[address] 1 tablet (0.4 mg total) under the tongue every 5 (five) minutes as needed for chest pain. Active propranoloL (INDERAL) 40 mg tablet 1 tablet (40 mg total). Active rivaroxaban (XARELTO) 20 mg tablet Take by mouth. Activ e cyanocobalamin (VITAMIN B-12) 250 mcg tablet Take 1 tablet (250 mcg total) by mouth 1 (one) time each day. Active dapagliflozin propanediol (FARXIGA) 10 mg tablet Take 1 tablet (10 mg total) by mouth 1 (one) time each day. Active droxidopa 300 mg capsule 5 Active B complex tablet Take 1 tablet by mouth 1 (one) time each day. Active albuterol HFA (PROAIR HFA ; PROVENTIL HFA ; VENTOLIN HFA) 90 mcg/actuation inhaler Inhale 2 puffs by mouth every 6 (six) hours if needed for wheezing or shortness of breath. 1 each 11 09/30/19 26 Active Active Problems Problem Noted Date Diagnosed Date Dizziness 07/28/2024 MARGI (obstructive sleep apnea) 07/28/2024 Overview (07/28/2024): with EEM movement disorder, see Neurology note 07/28/24, pt declined cPAP treatment History of CVA (cerebrovascular accident) 2024 Overview (07/28/2024): MRI showed ischemia in the posterior limb of right IC, maintained on Xarelto Parkinson's disease without fluctuating manifestations ([facility] V24, [facility] V28) 07/28/2024 Overview (07/28/2024): with worsening dizziness, follows with Dr. Chilel, naurology Paroxysmal A-fib ([facility] V24, [facility] V28) 07/12 Assessment & Plan (07/26/2024 8:42 AM EDT): Hereditary hemochromatosis ([facility] V24) 022 DDD (degenerative disc disease), lumbar 02/06/20 21 Lumbar radiculopathy 02/05/2021 Encounters Date Type Department Care Team Description 02/07/2025 9:45 AM EDT Office Visit [facility] Hematology Oncology [address] [place] [phone] Kyaw Gan MD Hereditary hemochromatosis ([facility] V24) (Primary Dx) 01/18/2025 10:45 AM EDT Office Visit Orthopedic Surgery - [place] [address] [place] [phone] Raphael Vigil DPM Pain in toes of both feet (Primary Dx); PVD (peripheral vascular disease) ([facility] V24); Difficulty walking; Arthritis of both feet; Dermatophytosis, nail 11/28/2024 9:30 AM EDT Office Visit [address] [phone] Delphine Shaw MD Dizziness (Primary Dx); History of CVA (cerebrovascular accident); Parkinson's disease without fluctuating manifestations, unspecified whether dyskinesia present ([facility] V24, [facility] V28); Paroxysmal A-fib ([facility] V24, [facility] V28); Hereditary hemochromatosis ([facility] V24); Hyperglycemia; Coronary artery disease involving chicken ranch coronary artery of chicken ranch heart without angina pectoris; Alcohol use; Elevated blood pressure reading 11/16/2024 10:45 AM EDT Office Visit [facility] [place] [address] [place] [address] [address] [place] [phone] Raphael Vigil DPM Pain in toes of both feet (Primary Dx); PVD (peripheral vascular disease) ([facility] V24); Difficulty walking; Arthritis of both feet; Dermatophytosis, nail from Last 3 Months Surgical History Surgery Date Site/Laterality Comments COLONOSCOPY 04/11/2008 PROCEDURE:COLONOSCOPY CORONARY ANGIOPLASTY WITH STENT PLACEMENT PROCEDURE:CORONARY ANGIOPLASTY WITH STENT PLACEMENT LUMBAR EPIDURAL INJECTION 02/05/2021 Right PROCEDURE:LUMBAR EPIDURAL INJECTION;COMMENT:Procedure: INJECTION ANESTHETIC AGENT LUMBAR; Surgeon: Bernice Schulz MD; Location: [facility]; Service: Rehab Medicine; Laterality: Right; COLONOSCOPY 04/11/08 PROCEDURE: HISTORICAL COLONOSCOPY; COMMENT: normal; repeat in ten years Medical History Medical History Date Comments Hemochromatosis DX:Hemochromatos is Hypertension DX:Hypertension Pure hypercholesterolemia DX:Pur e hypercholesterolemia Alcohol abuse DX:Alcohol abuse Coronary artery disease DX:Coron noemí artery disease Thrombocytopenia ([facility] V24) D X:Thrombocytopenia (HCC) Myocardial infarction ([facility] V24, [facility] V28) DX:Myocardial infarction (HC C) Coronary atherosclerosis of unspecified type of vessel, chicken ranch or graft 10/10/2005 DX:Coronary atherosclerosis of unspecified type of vessel, chicken ranch or graft; COMMENT: stent to 100% LAD 09/16 at [facility] Pure hypercholesterolemia 10/10/2005 DX:Pur e hypercholesterolemia [...] F) 02/07/2025 9:38 AM EDT Respiratory Rate 14 11/28/2024 9:35 AM EDT Oxygen Saturation 98% 02/07/2025 9:38 AM EDT Inhaled Oxygen Concentration - - Weight 103 kg (227 lb) 02/07/2025 9:38 AM EDT Height 190.5 cm (6' 3 ) 11/28/2024 9:35 AM EDT Body Mass Index 28.37 11/28/2024 9:35 AM EDT Plan of Treatment Upcoming Encounters Date Type Department Care Team (Late st Contact Info) Description 02/16/2025 10:15 AM EST Office Visit Adult Medicine [facility] [place] [address] [place], [place] [phone] Lynsey Abel NP [address] [place], [place] 03/23/2025 10:45 AM EST Office Visit Orthopedic Surgery - [place] [address] [phone] Raphael Vigil DPM [address] [place] [phone] 05/10/2025 10:00 AM EST Office Visit [facility] Hematology Oncology [address] [place] [address] Kyaw Gan MD [address] [place] [address] 09/29/2025 10:00 AM EDT Office Visit Pulmonology - [place] [address] [place] [phone] Alissa Sánchez MD [address] [place] [phone] Health Maintenance Due Date Last Done Comments Colorectal Cancer Screening: Colonoscopy 1960 Hepatitis A Vaccines (1 of 2 - Risk 2-dose series) 1977 Pneumococcal Vaccine: 50+ Years (2 of 2 - PCV) 03/17/2007 03/17/2006 RSV Immunization Adult Patients (1 - Risk 50-74 years 1-dose series) 02/25/2008 Zoster Vaccines (1 of 2) 02/25/2008 Cholesterol Screening (Lipid Panel) 03/16/2022 Hepatitis C Screening 03/16/2022 Medicare Annual Wellness Visit 03/16/2022 Social Influencers of Health Screening 03/16/2022 DTaP,Tdap,and Td Vaccines (3 - Td or Tdap) 09/22/2022 09/22/2012, 08/12/2004 Falls Risk Assessment 2023 Depression Screening 04/13/2024 COVID-19 Vaccine ( season) 2024 04/30/2022, 04/05/2021, 05/25/2020, Additional history exists Influenza Vaccine (#1) 2024 , 04/05/2021, 01/11/2010, Additional history exists Hypertension/CHF/CAD Annual BMP Blood Test 02/02/2026 02/02/2025, 11/02/2024, 08/02/2024, Additional history exists HIB Vaccines Aged Out No longer eligi [...] Diagnosis Comments CBC WITH AUTO DIFFERENTIAL Routine 02/02/2025 10:22 AM EDT Hereditary hemochromatosis ([facility] V24) IRON AND TIBC Routine 02/02/2025 10:22 AM EDT Hereditary hemochromatosis ([facility] V24) FERRITIN Routine 02/02/2025 10:22 AM EDT Hereditary hemochromatosis ([facility] V24) COMPREHENSIVE METABOLIC PANEL Routine 02/02/2025 10:22 AM EDT Hereditary hemochromatosis ([facility] V24) CBC AND DIFFERENTIAL Routine 02/02/2025 10:22 AM EDT Hereditary hemochromatosis ([facility] V24) HEMOGLOBIN A1C Routine 01/26/2025 10:20 AM EDT Hyperglycemia from Last 3 Months Results * (ABNORMAL) CBC auto differential (02/02/2025 10:22 AM EDT) WBC 5.1 4.8 - 10.8 K/mcL LAB HEMETOLOGY METHOD 02/02/2025 12:56 PM EDT [facility] RBC 4.80 4.50 - 5.50 M/mcL LAB HEMETOLOGY METHOD 02/02/2025 12:56 PM EDT [facility] Hemoglobin 15.5 13.5 - 17.5 g/dL LAB HEMETOLOGY METHOD 02/02/2025 12:56 PM T [facility] Hematocrit 46.7 42.0 - 54.0 % LAB HEMETOLOGY METHOD 02/02/2025 12:56 PM [facility] MCV 98.1(H) 79.0 - 98.0 FL LAB HEMETOLOGY METHOD 02/02/2025 12:56 PM [facility] MCH 32.6(H) 27.0 - 32.0 pcg LAB HEMETOLOGY METHOD 02/02/2025 12:56 PM [facility] MCHC 33.2 32.0 - 37.0 g/dL LAB HEMETOLOGY METHOD 02/02/2025 12:56 PM [facility] RDW 13.5 11.0 - 15.0 % LAB HEMETOLOGY METHOD 02/02/2025 12:56 PM [facility] Platelets 119(L) 130 - 400 K/mcL LAB HEMETOLOGY METHOD 02/02/2025 12:56 PM [facility] MPV 10.9 7.0 - 11.0 FL LAB HEMETOLOGY METHOD 02/02/2025 12:56 PM [facility] NRBC 0.0 <1.0 % LAB HEMETOLOGY METHOD 02/02/2025 12:56 PM [facility] NRBC Absolute 0.00 <0.10 K/mcL LAB HEMETOLOGY METHOD 02/02/2025 12:56 PM [facility] Neutrophils Relative 62.1 % LAB HEMETOLOGY METHOD 02/02/2025 12:56 PM [facility] Lymphocytes Relative 26.4 % LAB HEMETOLOGY METHOD 02/02/2025 12:56 PM [facility] Monocytes Relative 9.3 % LAB HEMETOLOGY METHOD 02/02/2025 12:56 PM [facility] Eosinophils Relative 1.2 % LAB HEMETOLOGY METHOD 02/02/2025 12:56 PM EDT [facility] Basophils Relative 0.6 % LAB HEMETOLOGY METHOD 02/02/2025 12:56 PM EDT [facility] Immature Granulocytes Relative 0.4 % LAB HEMETOLOGY METHOD 02/02/2025 12:56 PM EDT [facility] Neutrophils Absolute 3.15 1.50 - 7.00 K/mcL LAB HEMETOLOGY METHOD 02/02/2025 12:56 PM EDT [facility] Lymphocytes Absolute 1.34 1.00 - 5.00 K/mcL LAB HEMETOLOGY METHOD 02/02/2025 12:56 PM EDT [facility] Monocytes Absolute 0.47 0.20 - 1.00 K/mcL LAB HEMETOLOGY METHOD 02/02/2025 12:56 PM EDT [facility] Eosinophils Absolute 0.06 0.00 - 0.50 K/mcL LAB HEMETOLOGY METHOD 02/02/2025 12:56 PM EDT [facility] Basophils Absolute 0.03 0.00 - 0.20 K/mcL LAB HEMETOLOGY METHOD 02/02/2025 12:56 PM EDT [facility] Immature Granulocytes Absolute 0.02 0.00 - 0.03 K/mcL LAB HEMETOLOGY METHOD 02/02/2025 12:56 PM EDT [facility] Blood Venous blood specimen / Unknown Venipuncture / Unknown 02/02/2025 10:22 AM EDT 02/02/2025 12:09 PM EDT Kyaw Gan MD LAB BLOOD ORDERABLES Final Result [facility] [address] [place] [address], * (ABNORMAL) Iron and TIBC (02/02/2025 10:22 AM EDT) Iron 166(H) 50 - 160 mcg/dL LAB CHEMISTRY METHOD 02/02/2025 2:53 PM EDT [facility] TIBC 342 250 - 450 mcg/dL LAB CHEMISTRY METHOD 02/02/2025 2:53 PM EDT [facility] Iron Saturation 49 20 - 50 % LAB CHEMISTRY METHOD 02/02/2025 2:53 PM EDT [facility] Blood Venous blood specimen / Unknown Venipuncture / Unknown 02/02/2025 10:22 AM EDT 02/02/2025 12:09 PM EDT us Kyaw Gan MD LAB BLOOD ORDERABLES Final Result Performing Organization Address [facility]/ZIP Co de Phone Number [facility] [address] [place] [address], [place] [phone] * Ferritin (02/02/2025 10:22 AM EDT) Ferritin 29 26 - 388 ng/mL LAB CHEMISTRY METHOD 02/02/2025 2:53 PM EDT [facility] Blood Venous blood specimen / Unknown Venipuncture / Unknown 02/02/2025 10:22 AM EDT 02/02/2025 12:09 PM EDT us Kyaw Gan MD LAB BLOOD ORDERABLES Final Result [facility] [address] [place] [address], [place] [phone] * (ABNORMAL) Comprehensive metabolic panel (02/02/2025 10:22 AM EDT) Sodium 139 133 - 145 mmol/L LAB CHEMISTRY METHOD 02/02/2025 3:20 PM EDT [facility] Potassium 4.6 3.5 - 5.5 mmol/L LAB CHEMISTRY METHOD 02/02/2025 3:20 PM [facility] Chloride 104 96 - 110 mmol/L LAB CHEMISTRY METHOD 02/02/2025 3:20 PM [facility] CO2 28 21 - 32 mmol/L LAB CHEMISTRY METHOD 02/02/2025 3:20 PM [facility] Anion Gap 7 3 - 11 LAB CHEMISTRY METHOD 02/02/2025 3:20 PM [facility] Glucose 88 70 - 100 mg/dL LAB CHEMISTRY METHOD 02/02/2025 3:20 PM [facility] BUN 22 5 - 25 mg/dL LAB CHEMISTRY METHOD 02/02/2025 3:20 PM [facility] Creatinine 1.04 0.70 - 1.30 mg/dL LAB CHEMISTRY METHOD 02/02/2025 3:20 PM [facility] eGFR 79 >=60 mL/min/1. 73m2 LAB CHEMISTRY METHOD 02/02/2025 3:20 PM [facility] Comment:Calculation based on the Chronic Kidney Disease Epidemiology Collaboration (CKD-EPI) equation refit without adjustment for race. BUN/Creatinine Ratio 21.2 LAB CHEMISTRY METHOD 02/02/2025 3:20 PM [facility] Calcium 8.7 8.5 - 10.5 mg/dL LAB CHEMISTRY METHOD 02/02/2025 3:20 PM [facility] AST (SGOT) 30 10 - 42 unit/L LAB CHEMISTRY METHOD 02/02/2025 3:20 PM [facility] ALT (SGPT) 28 10 - 60 unit/L LAB CHEMISTRY METHOD 02/02/2025 3:20 PM [facility] Alkaline Phosphatase 101 42 - 121 unit/L LAB CHEMISTRY METHOD 02/02/2025 3:20 PM [facility] Total Protein 6.7 6.0 - 8.0 g/dL LAB CHEMISTRY METHOD 02/02/2025 3:20 PM EDT [facility] Albumin 4.1 3.2 - 5.0 g/dL LAB CHEMISTRY METHOD 02/02/2025 3:20 PM EDT [facility] Total Bilirubin 1.5(H) 0.0 - 1.4 mg/dL LAB CHEMISTRY METHOD 02/02/2025 3:20 PM EDT [facility] Blood Venous blood specimen / Unknown Venipuncture / Unknown 02/02/2025 10:22 AM EDT 02/02/2025 12:09 PM EDT Kyaw Gan MD LAB BLOOD ORDERABLES Final Result Performing Organization Address [facility]/ZIP Co de Phone Number [facility] [address] [place] [address], [place] [phone] * Hemoglobin A1c (01/26/2025 10:20 AM EDT) [facility] Hemoglobin A1C 5.7 <6.5 % LAB CHEMISTRY METHOD 01/26/2025 1:50 PM EDT [facility] Mean Bld Glu Estim. 117 mg/dL LAB CHEMISTRY METHOD 01/26/2025 1:50 PM EDT [facility] Blood Venous blood specimen / Unknown Venipuncture / Unknown 01/26/2025 10:20 AM EDT 01/26/2025 10:20 AM EDT Delphine Shaw MD LAB BLOOD ORDERABLES Final Resul t [facility] [address] [place] [address], [place] [phone] from Last 3 Months Insurance MEDICARE [facility] Care Teams Consumer Lender Relationship Specialty Start Date End Date Delphine Shaw MD [address] [place] [address] PCP - General 08/05/1997
--- OUTSIDE RECORDS SUMMARY | 2025-02-08 13:28 | XMS_ITS | Clinical Summary ---
Author Organization [facility] Address [address] [place] [address] Care Team Providers Care Stonemason Name Role Phone Delphine Shaw MD Primary Care Provider [phone] Allergies No known active allergies Medications Medication [...] 65 01/11/2024 10:42 AM EDT Temperature 36.8 C (98.3 F) 01/11/2024 10:42 AM EDT Respiratory Rate 22 02/05/2021 11:38 AM EDT [...] Risk Assessment 2023 COVID-19 Vaccine (2 - 2024- season) 2024 04/05/2021 Influenza Vaccine (#1) 2024 , 04/05/2021, 01/11/2010, Additional history exists RSV Adult > 60+ Yrs or (1 - 1-dose 75+ series) 2033 Hepatitis B Vaccines Aged Out No long er eligible based on patient's age to complete this topic RSV Ped < 20 months Aged Out No longe r eligible based on patient's age to complete this topic Care Teams Stonemason Relationship Specialty Start Date End Date Delphine Shaw MD PCP - General Internal Medicine 01/16/20
--- OUTSIDE RECORDS SUMMARY | 2025-02-08 13:28 | XMS_ITS ---
Author Name [facility] Organization Unknown Encounters Encounter Type Encounter Reason Primary Diagnosis Location Date Ambulatory [facility] 01/22/2024 Care Team Organization Name Specialty Phone Email Start Date End Da te [facility] 2024
== END 2025-02-08 11:20 | disposition home or self-care (01) ==
LOC: HO.HSMS 10:46
PROVIDERS: PCP Internal Medicine; Visit Provider Psychiatry & Neurology Neurology
DX: G20.A1 Parkinson's disease without dyskinesia, without mention of fluctuations (principal); G47.33 Obstructive sleep apnea (adult) (pediatric); G90.3 Multi-system degeneration of the autonomic nervous system
CPT/HCPCS: 99214; G2211

== ENCOUNTER → 2025-02-08 10:45 | Outpatient (BNVA) | payer MEDICARE, OTHER, SELFPAY | PROVIDERS: PCP Internal Medicine; Visit Provider Psychiatry & Neurology Neurology | DX: G20.A1 Parkinson's disease without dyskinesia, without mention of fluctuations (principal); G90.3 Multi-system degeneration of the autonomic nervous system; G47.33 Obstructive sleep apnea (adult) (pediatric) | CPT/HCPCS: 99212 ==